=== PATIENT | female | born 1990 | race Caucasian/White ===

== ENCOUNTER 2023-02-08 11:41 | Outpatient (RCR) | payer BC, SELFPAY | END 2023-05-07 23:59 | disposition home or self-care (01) | LOC: ANHLAB 11:41 | PROVIDERS: Visit Provider Obstetrics & Gynecology Gynecology | DX: O26.851 Spotting complicating pregnancy, first trimester (principal); Z3A.00 Weeks of gestation of pregnancy not specified | CPT/HCPCS: 36415; 84702 ==

== ENCOUNTER 2023-02-14 15:17 | Outpatient (CLI) | payer BC, SELFPAY ==
--- NOTE | ~2023-02-14 | US_ITS ---
EXAMINATION: US OB <= 14 weeks fetus DATE: 02/14/2023 INDICATION: Bleeding during first trimester TECHNIQUE: Real-time pelvic transabdominal and transvaginal ultrasound was performed. COMPARISON: None. FINDINGS: The uterus measures 9.3 x 4.9 cm. There is an intrauterine gestational sac. There is a 9 mm hypoechoic area adjacent to the gestational sac. The measured cervical length is 3.4 cm. A yolk sac is identified. heart motion is identified measuring 145 beats per minute (bpm) by M-mode Dopple r. The crown rump length measures 11 mm, which correlates with an estimated gestational age of 7 weeks and 2 day(s) (+/-) 5 day(s). The right ovary is not visualized however no right adnexal abnormality is seen. The left ovary measur es 2.7 x 1.7 x 2.0. There is normal vascular flow in the left ovary. There is no free fluid in the pe lvis. IMPRESSION: 1. Live intrauterine with an estimated gestational age of 7 weeks and 2 day(s) (+/-) 5 day( s) and an estimated delivery date of 10/01/2023. 2. Small subchorionic hemorrhage. Reviewed, dictated and finalized at location A. IMPRESSION: 1. Live intrauterine with an estimated gestational age of 7 weeks and 2 day(s) (+/-) 5 day(s) and an estimated delivery date of 10/01/2023. 2. Small subchorionic hemorrhage.
== END 2023-02-14 15:18 | disposition home or self-care (01) ==
LOC: ANHIMG 18:16
PROVIDERS: Visit Provider Advanced Practice Midwife
DX: O26.851 Spotting complicating pregnancy, first trimester (principal); Z3A.00 Weeks of gestation of pregnancy not specified
CPT/HCPCS: 76801

== ENCOUNTER 2023-02-14 16:40 | Outpatient (CLI) | payer BC, SELFPAY | END 2023-02-14 16:41 | disposition home or self-care (01) | LOC: ANHLAB 16:42 | PROVIDERS: Visit Provider Obstetrics & Gynecology Gynecology | DX: O26.851 Spotting complicating pregnancy, first trimester (principal); Z3A.00 Weeks of gestation of pregnancy not specified | CPT/HCPCS: 36415; 76801; 86850; 86900; 86901 ==

== ENCOUNTER 2023-03-27 15:03 | Outpatient (CLI) | payer BC, SELFPAY ==
--- NOTE | ~2023-03-27 | US_ITS ---
EXAMINATION: US OB <= 14 weeks fetus DATE: 03/27/2023 15:45 INDICATION: Follow-up subchorionic hematoma TECHNIQUE: Real-time transabdominal and transvaginal obstetric ultrasound. FINDINGS: Ultrasound dated 02/14/2023 The uterus measures 17.3 x 8.7 x 5.6 cm. No evidence for subchorionic hematoma. There is an intrauter ine gestational sac, with pole identified. heart rate is 157 BPM. IMPRESSION: 1: Single living intrauterine with heart rate of 157 BPM. 2: Interval resolution of subchorionic hematoma. Reviewed, dictated and finalized at location A.
== END 2023-03-27 15:04 | disposition home or self-care (01) ==
PROVIDERS: Visit Provider Obstetrics & Gynecology Gynecology
DX: O36.8910 Maternal care for other specified fetal problems, first trimester, not applicable or unspecified (principal); Z3A.00 Weeks of gestation of pregnancy not specified
CPT/HCPCS: 76801

== ENCOUNTER 2023-04-17 07:36 | Outpatient (CLI) | payer BC, SELFPAY ==
[2023-04-17 08:12] LABS: Basophils Absolute Auto 0.1 K/mm3 (0.0-0.1); Basophils Percent Auto 0.6 % (0.2-1.2); Eosinophils Absolute Auto 0.2 K/mm3 (0-0.3); Eosinophils Percent Auto 2.1 % (0-4.4); Hematocrit 34.2 % (37.0-47.0); Hemoglobin 11.5 g/dL (12.0-15.0); Immature Granulocyte Absolute 0.05 K/mm3 (0.00-0.031); Immature Granulocyte Percent A 0.5 % (0-0.5); Lymphocytes Absolute Auto 1.87 K/mm3 (0.9-3.2); Lymphocytes Percent Auto 19.3 % (18.3-44.2); Mean Corpuscular HGB Conc 33.6 g/dl (32-36); Mean Corpuscular Hemoglobin 28.7 pg (26-34); Mean Corpuscular Volume 85.3 fl (80-100); Mean Platelet Volume 9.4 fl (7.4-10.4); Monocytes Absolute Auto 0.4 K/mm3 (0.1-0.6); Monocytes Percent Auto 4.2 % (2.6-8.5); Neutrophils Absolute Auto 7.1 K/mm3 (1.3-6.7); Neutrophils Percent Auto 73.3 % (45.5-73.1); Platelet Count Result 346 k/mm3 (150-375); Red Blood Count 4.01 M/mm3 (4.2-5.4); Red Cell Distribution Width 15.7 % (11.5-14.5); White Blood Count 9.7 K/mm3 (4.5-10.0)
[2023-04-17 08:18] LABS: Hemoglobin A1C 5.4 % (<5.7)
[2023-04-17 08:47] LABS: Vitamin D 25 Hydroxy 30.4 ng/mL
[2023-04-17 08:56] LABS: HIV 1/2 Ab P24 Ag Result Negative (Negative)
[2023-04-17 08:59] LABS: Hepatitis B Surface Antigen Negative (Negative); Rubella IgG Antibody 9.5 IU/ML
[2023-04-17 09:12] LABS: Hepatitis C Virus Antibody Negative (Negative)
[2023-04-17 12:13] LABS: Rapid Plasma Reagin Non-Reactive (NonReactive)
== END 2023-04-17 07:37 | disposition home or self-care (01) ==
PROVIDERS: Visit Provider Obstetrics & Gynecology Gynecology
DX: Z36.9 Encounter for antenatal screening, unspecified (principal); Z3A.00 Weeks of gestation of pregnancy not specified
CPT/HCPCS: 36415; 82306; 82728; 83036; 85025; 86592; 86703; 86762; 86803; 86850; 86900; 86901; 87340; G0432

== ENCOUNTER 2023-06-27 13:00 | Outpatient (CLI) | payer BC, SELFPAY ==
[2023-06-27 14:38] LABS: Hematocrit 32.9 % (37.0-47.0); Hemoglobin 10.7 g/dL (12.0-15.0)
[2023-06-27 14:47] LABS: Glucose 1 Hour PP 50gm Dose 146 mg/dL
[2023-06-27 15:27] LABS: Rubella IgG Antibody 8.1 IU/ML
[2023-06-27 15:28] LABS: HIV 1/2 Ab P24 Ag Result Negative (Negative)
== END 2023-06-27 13:01 | disposition home or self-care (01) ==
LOC: ANHLAB 13:01
PROVIDERS: Visit Provider Obstetrics & Gynecology Gynecology
DX: Z34.00 Encounter for supervision of normal first pregnancy, unspecified trimester (principal)
CPT/HCPCS: 36415; 82306; 82947; 85014; 85018; 86703; 86762; G0432

== ENCOUNTER 2023-07-20 07:04 | Outpatient (CLI) | payer BC, SELFPAY ==
[2023-07-20 07:51] LABS: Glucose Fasting Gestational 124 mg/dL (>/=95)
== END 2023-07-20 07:05 | disposition home or self-care (01) ==
LOC: ANHLAB 07:07
PROVIDERS: Visit Provider Obstetrics & Gynecology Gynecology
DX: Z34.03 Encounter for supervision of normal first pregnancy, third trimester (principal)
CPT/HCPCS: 36415; 82951; 82952

== ENCOUNTER 2023-08-17 12:51 | Observation (INO) | payer BC, SELFPAY ==
[2023-08-17] VITALS (16 sets, daily range): BP systolic 137–152; BP diastolic 85–97; PULSE 85–99; RESP 12–14; TEMP 36.6; O2SAT 99–100; BMI 37.8
--- NOTE | ~2023-08-17 | US_ITS ---
. EXAMINATION: US OB follow up w BPP DATE: 08/17/2023 12:09 INDICATION: Preeclampsia. Gestational diabetes. Third trimester. TECHNIQUE: Real-time pelvic ultrasound was performed. COMPARISON: Ultrasound 03/27/2023, 02/14/2023 FINDINGS: There is a single living fetus in vertex presentation. The placenta is posterior. heart rate i s 149 beats per minute (bpm). Amniotic fluid index is 25.6 cm, which is high (95th percentile is 24.9 cm) The following biometric data were obtained: Biparietal diameter (BPD): 8.5 cm; head circumference (HC): 32.4 cm; abdominal circumference (AC): 33 .9 cm; femur length (FL): 7.3 cm. These measurements are concordant. Estimated weight is 3117 g +/- 468 g, which correlates with the >97th percentile when 09/26/23 i s used as estimated date of delivery. As single measurements, these parameters are each equal to the following estimated gestational ages: BPD: 34 weeks 2 days. HC: 36 weeks 4 days. AC: 37 weeks 5 days. FL: 37 weeks 2 days. estimated gestational age based solely on measurements from this exam is 36 weeks 3 days +/- 2 weeks 4 days. Biophysical profile performed by the technologist: breathing (30 sec sustained breathing in 30 minutes): 2 out of 2 movement (3 gross body movements in 30 minutes): 2 out of 2 tone (one episode of gjzfnlo-aagplvmfc-xfrzhdm limb movement): 2 out of 2 Amniotic fluid pocket (2 cm): 2 out of 2 Total score: 8 out of 8 IMPRESSION: 1. Single living fetus in vertex presentation. 2. Large for gestational age. Estimated weight is 3117 g +/- 468 g, which correlates with the > 97th percentile when 09/26/23 is used as estimated date of delivery. Note that estimated date of deliv cherri based on the ultrasound from 02/14/2023 would be 10/01/23. 3. Polyhydramnios. 4. Biophysical profile 8 out of 8. Reviewed, dictated and finalized at location A. TECH IMPRESSION: 1. Single living fetus in vertex presentation. 2. Large for gestational age. Estimated weight is 3117 g +/- 468 g, which correlates with the >97th percentile when 09/26/23 is used as estimated date of delivery. Note that estimated date of delivery based on the ultrasound from would be 10/01/23. 3. Polyhydramnios. 4. Biophysical profile 8 out of 8.
[2023-08-17 10:52] LABS: Basophils Absolute Auto 0.1 K/mm3 (0.0-0.1); Basophils Percent Auto 0.5 % (0.2-1.2); Eosinophils Absolute Auto 0.1 K/mm3 (0-0.3); Hematocrit 33.8 % (37.0-47.0); Hemoglobin 10.9 g/dL (12.0-15.0); Immature Granulocyte Absolute 0.08 K/mm3 (0.00-0.031); Immature Granulocyte Percent A 0.7 % (0-0.5); Lymphocytes Absolute Auto 1.58 K/mm3 (0.9-3.2); Lymphocytes Percent Auto 13.8 % (18.3-44.2); Mean Corpuscular HGB Conc 32.2 g/dl (32-36); Mean Corpuscular Hemoglobin 26.7 pg (26-34); Mean Corpuscular Volume 82.8 fl (80-100); Mean Platelet Volume 10.6 fl (7.4-10.4); Monocytes Absolute Auto 0.6 K/mm3 (0.1-0.6); Monocytes Percent Auto 5.4 % (2.6-8.5); Neutrophils Percent Auto 78.6 % (45.5-73.1); Platelet Count Result 303 k/mm3 (150-375); Red Blood Count 4.08 M/mm3 (4.2-5.4); Red Cell Distribution Width 15.5 % (11.5-14.5); White Blood Count 11.5 K/mm3 (4.5-10.0)
[2023-08-17 10:57] LABS: Appearance Urine Clear (Clear); Bacteria Urine None Seen /hpf; Bilirubin Urine 1+ (Negative); Blood Urine Negative (Negative); Color Urine Dark Yellow (Yellow); Glucose Urine UA Negative (Negative); Ketones Urine 1+ mg/dL (Negative); Leukocyte Esterase Ur Trace LEU/UL (NEGATIVE); Nitrate Urine Negative (Negative); Non Pathogenic Casts 0-2; Protein Urine 1+ mg/dL (Negative); RBC Urine 0-2 /hpf (0-2); Specific Grav Ur 1.021 (1.001-1.035); Squamous Epithelial Cell Urine Moderate /hpf (Few); WBC Urine 0-5 /hpf (0-3); pH Urine 6.5 (5.0-9.0)
[2023-08-17 10:58] LABS: Total Protein Urine Random 40 mg/dL; Ur Ttl Prot Creatinine Ratio 0.23 mg/mg (0-0.20)
[2023-08-17 11:01] LABS: Add Urine Microscopic? YES
[2023-08-17 11:04] LABS: Alanine Aminotransferase 15 U/L (6-35); Albumin Level 3.2 g/dL (3.5-5.1); Alkaline Phosphatase 167 U/L (38-126); Anion Gap 8 mmol/L (8-16); Aspartate Amino Transferase 46 U/L (14-36); Bilirubin,Total 0.5 mg/dL (0.2-1.3); Blood Urea Nitrogen 3 mg/dL (7-17); Calcium 8.8 mg/dL (8.4-10.2); Carbon Dioxide 18 mmol/L (22-30); Chloride 109 mmol/L (98-107); Estimated Glomerular Filt Rate > 60; Glucose 117 mg/dL (65-110); Potassium 3.7 mmol/L (3.4-5.0); Sodium 135 mmol/L (137-145); Uric Acid 6.2 mg/dL (2.5-7.5)
--- NOTE | 2023-08-17 12:51 | PC.NURSE ---
Yeny La notified of BP's, non reactive tracing, variable and contractions noted, and lab results. Orders to keep patient overnight, cont monitoring until reactive.
--- NOTE | 2023-08-17 12:51 | OBADM ---
This patient, Mariam Gamboa, admitted to the OB room OB Post 116 for observation. Patient/family oriented to hospital policies and general routines including ID bracelet, bed and alarms, visiting hours, pain management, procedures, bathroom and other care routines, personal items, smoking policy, room service/diet, and visiting hours. Patient/Family are encouraged to report perceived risks to care and to ask questions if they do not understand what they are told or what they should do.
[2023-08-17 15:16] LABS: Glucose Point of Care 113 mg/dl (65-105)
[2023-08-17 19:22] LABS: Glucose Point of Care 96 mg/dl (65-105)
[2023-08-17] MEDS: INSULIN HUMAN NPH (*BKC) 100 UNITS/ML SUB-Q (21:25)
[2023-08-17 22:44] LABS: Glucose Point of Care 92 mg/dl (65-105)
[2023-08-18] VITALS (11 sets, daily range): BP systolic 131–157; BP diastolic 80–101; PULSE 73–104; RESP 14; TEMP 36.3–37.6; O2SAT 100
[2023-08-18 05:22] LABS: Basophils Absolute Auto 0.1 K/mm3 (0.0-0.1); Basophils Percent Auto 0.5 % (0.2-1.2); Eosinophils Absolute Auto 0.1 K/mm3 (0-0.3); Eosinophils Percent Auto 1.3 % (0-4.4); Hematocrit 36.1 % (37.0-47.0); Hemoglobin 11.5 g/dL (12.0-15.0); Immature Granulocyte Absolute 0.07 K/mm3 (0.00-0.031); Immature Granulocyte Percent A 0.6 % (0-0.5); Lymphocytes Absolute Auto 2.47 K/mm3 (0.9-3.2); Lymphocytes Percent Auto 22.6 % (18.3-44.2); Mean Corpuscular HGB Conc 31.9 g/dl (32-36); Mean Corpuscular Hemoglobin 26.5 pg (26-34); Mean Corpuscular Volume 83.2 fl (80-100); Mean Platelet Volume 10.6 fl (7.4-10.4); Monocytes Absolute Auto 0.5 K/mm3 (0.1-0.6); Monocytes Percent Auto 4.9 % (2.6-8.5); Neutrophils Absolute Auto 7.7 K/mm3 (1.3-6.7); Neutrophils Percent Auto 70.1 % (45.5-73.1); Platelet Count Result 296 k/mm3 (150-375); Red Blood Count 4.34 M/mm3 (4.2-5.4); Red Cell Distribution Width 15.2 % (11.5-14.5); White Blood Count 10.9 K/mm3 (4.5-10.0)
[2023-08-18 05:32] LABS: Alanine Aminotransferase 14 U/L (6-35); Albumin Level 3.2 g/dL (3.5-5.1); Alkaline Phosphatase 170 U/L (38-126); Anion Gap 9 mmol/L (8-16); Aspartate Amino Transferase 51 U/L (14-36); Bilirubin,Total 0.8 mg/dL (0.2-1.3); Blood Urea Nitrogen 4 mg/dL (7-17); Calcium 9.2 mg/dL (8.4-10.2); Carbon Dioxide 19 mmol/L (22-30); Chloride 108 mmol/L (98-107); Estimated CRCL calculation 185 ml/min; Estimated Glomerular Filt Rate > 60; Glucose 83 mg/dL (65-110); Potassium 3.8 mmol/L (3.4-5.0); Sodium 136 mmol/L (137-145); Uric Acid 6.4 mg/dL (2.5-7.5)
[2023-08-18 07:55] LABS: Glucose Point of Care 89 mg/dl (65-105)
--- NOTE | 2023-08-18 09:17 | PM.OBPNVD ---
OB - PN: Subj Subjective Date/time seen: 08/18/23 09:17 Interval history: She denies headache scotomata or RUQ pain. BP since observation 140s/90 mostly. AM BS 89. OB - PN: Obj Data Labs 08/18/23 05:06 08/18/23 05:06 Labs: Laboratory Results - last 24 hr 08/17/23 08/17/23 08/17/23 10:46 15:13 19:15 WBC 11.5 H RBC 4.08 L Hgb 10.9 L Hct 33.8 L MCV 82.8 MCH 26.7 MCHC 32.2 RDW 15.5 H Plt Count 303 MPV 10.6 H Immature Gran % (Auto) 0.7 H Neut % (Auto) 78.6 H Lymph % (Auto) 13.8 L [place] % (Auto) 5.4 Eos % (Auto) 1.0 Baso % (Auto) 0.5 Lymph # (Auto) 1.58 [place] # (Auto) 0.6 Eos # (Auto) 0.1 Baso # (Auto) 0.1 Abs Immat Gran (auto) 0.08 H Absolute Neuts (auto) 9.0 H Absolute Nucleated RBC 0.0 Nucleated RBC % 0.0 Sodium 135 L Potassium 3.7 Chloride 109 H Carbon Dioxide 18 L Anion Gap 8 BUN 3 L Creatinine 0.40 L Estim Creat Clear Calc Not Reportable Estimated GFR > 60 Glucose 117 H POC Capillary Glucose 113 H 96 Uric Acid 6.2 Calcium 8.8 Total Bilirubin 0.5 AST 46 H ALT 15 Alkaline Phosphatase 167 H Total Protein 7.0 Albumin 3.2 L Urine Color Dark yellow Urine Appearance Clear Urine pH 6.5 Ur Specific [place] 1.021 Urine Protein 1+ H Urine Glucose (UA) Negative Urine Ketones 1+ H Ur Blood (Man) Negative Urine Nitrate Negative Urine Bilirubin 1+ H Urine Urobilinogen 1.0 Ur Leukocyte Esterase Trace H Urine RBC 0-2 Urine WBC 0-5 Ur Squamous Epith Cells Moderate Urine Bacteria None seen Urine Casts 0-2 U Random Total Protein 40 Urine Creatinine 176.0 Protein/Creat Ratio 2 0.23 H 08/17/23 08/18/23 08/18/23 22:38 05:06 07:49 WBC 10.9 H RBC 4.34 Hgb 11.5 L Hct 36.1 L MCV 83.2 MCH 26.5 MCHC 31.9 L RDW 15.2 H Plt Count 296 MPV 10.6 H Immature Gran % (Auto) 0.6 H Neut % (Auto) 70.1 Lymph % (Auto) 22.6 [place] % (Auto) 4.9 Eos % (Auto) 1.3 Baso % (Auto) 0.5 Lymph # (Auto) 2.47 [place] # (Auto) 0.5 Eos # (Auto) 0.1 Baso # (Auto) 0.1 Abs Immat Gran (auto) 0.07 H Absolute Neuts (auto) 7.7 H Absolute Nucleated RBC 0.0 Nucleated RBC % 0.0 Sodium 136 L Potassium 3.8 Chloride 108 H Carbon Dioxide 19 L Anion Gap 9 BUN 4 L Creatinine 0.40 L Estim Creat Clear Calc 185 Estimated GFR > 60 Glucose 83 POC Capillary Glucose 92 89 Uric Acid 6.4 Calcium 9.2 Total Bilirubin 0.8 AST 51 H ALT 14 Alkaline Phosphatase 170 H Total Protein 7.0 Albumin 3.2 L Urine Color Urine Appearance Urine pH Ur Specific [place] Urine Protein Urine Glucose (UA) Urine Ketones Ur Blood (Man) Urine Nitrate Urine Bilirubin Urine Urobilinogen Ur Leukocyte Esterase Urine RBC Urine WBC Ur Squamous Epith Cells Urine Bacteria Urine Casts U Random Total Protein Urine Creatinine Protein/Creat Ratio 2 Imaging Radiologist's impression: Impressions Obstetrical Follow-Up 08/17/23 12:12 IMPRESSION: 1. Single living fetus in vertex presentation. 2. Large for gestational age. Estimated weight is 3117 g +/- 468 g, which correlates with the >97th percentile when 09/26/23 is used as estimated date of delivery. Note that estimated date of delivery based on the ultrasound from 02/14/2023 would be 10/01/23. 3. Polyhydramnios. 4. Biophysical profile 8 out of 8. OB - PN A/P Assessment and Plan (1) Gestational hypertension: Code(s): O13.9 - Gestational [-induced] hypertension without significant proteinuria, unspecified trimester Status: Acute Assessment and Plan: No severe symptoms or labs. Will complete 24 hour urine and then discharge with PIH precautions. (2) Gestational diabetes:
[2023-08-18 10:53] LABS: Glucose Point of Care 107 mg/dl (65-105)
[2023-08-18] MEDS: LABETALOL HCL 100 MG TABLET 200 MG PO (12:30)
[2023-08-18 13:08] LABS: Collection Time Urine 24 HOURS
[2023-08-18 13:10] LABS: Total Volume 24 Hour Urine 1800 ml
[2023-08-18 13:25] LABS: Creatinine Clearance Urine 198.5 ml/min (75-125); Creatinine Urine 72.7 mg/dL; Patient Weight 213 Lbs; Total Protein Urine 24 Hr 414 mg/24hr (28-141); Total Protein Urine Random 23 mg/dL
== END 2023-08-18 13:40 | disposition home or self-care (01) ==
LOC: ANHOBOP 13:08 → ANHOBPP 08-18 13:29
PROVIDERS: Advanced Practice Midwife; Admitting Provider Obstetrics & Gynecology Gynecology; Visit Provider Obstetrics & Gynecology
DX: O13.3 Gestational [pregnancy-induced] hypertension without significant proteinuria, third trimester (principal); O24.419 Gestational diabetes mellitus in pregnancy, unspecified control; O40.3XX0 Polyhydramnios, third trimester, not applicable or unspecified; Z3A.34 34 weeks gestation of pregnancy
CPT/HCPCS: 36415; 59025; 76816; 76819; 80053; 81001; 81050; 82570; 82575; 82948; 84156; 84550; 85025; 87086; 87088; A9270; G0378; G0379; J1815

== ENCOUNTER 2023-08-30 11:08 | Outpatient (RCR) | payer BC, SELFPAY ==
--- NOTE | ~2023-08-30 | US_ITS ---
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 FINDINGS: 08/17/2023 There is a single living fetus in vertex presentation. The placenta is posterior without placenta pr evia. cardiac activity and movement is noted with a heart rate of 141 beats per minute. Biophysical profile: breathin of 2 movement: 2 of 2 tone: 2 of 2 Amniotic flud pocket: 2 of 2 Total score: 8 of 8 IMPRESSION: 1. Single living intrauterine in vertex presentation. 2: Total biophysical profile score of 8/8. Reviewed, dictated and finalized at location L. ULSION MACHINERY SERVICE ENGINEER
[2023-08-30 12:46] VITALS: BP 124/75; PULSE 73
== END 2023-11-28 23:59 | disposition home or self-care (01) ==
LOC: ANHOBOP 11:08
PROVIDERS: Visit Provider Advanced Practice Midwife
DX: O26.893 Other specified pregnancy related conditions, third trimester (principal); Z3A.36 36 weeks gestation of pregnancy
CPT/HCPCS: 59025; 76819

== ENCOUNTER 2023-09-05 00:01 | Inpatient (IN) | payer BC, SELFPAY ==
[2023-09-05] VITALS (130 sets, daily range): BP systolic 113–160; BP diastolic 65–105; PULSE 67–108; RESP 16; TEMP 35.8–36.8; O2SAT 96–100; BMI 37.0
[2023-09-05 00:32] LABS: Glucose Point of Care 112 mg/dl (65-105)
[2023-09-05 00:36] LABS: Basophils Absolute Auto 0.1 K/mm3 (0.0-0.1); Basophils Percent Auto 0.7 % (0.2-1.2); Eosinophils Absolute Auto 0.1 K/mm3 (0-0.3); Eosinophils Percent Auto 0.8 % (0-4.4); Hematocrit 38.1 % (37.0-47.0); Immature Granulocyte Absolute 0.05 K/mm3 (0.00-0.031); Immature Granulocyte Percent A 0.5 % (0-0.5); Lymphocytes Absolute Auto 2.45 K/mm3 (0.9-3.2); Lymphocytes Percent Auto 23.4 % (18.3-44.2); Mean Corpuscular HGB Conc 31.5 g/dl (32-36); Mean Corpuscular Hemoglobin 26.4 pg (26-34); Mean Corpuscular Volume 83.7 fl (80-100); Mean Platelet Volume 11.3 fl (7.4-10.4); Monocytes Absolute Auto 0.6 K/mm3 (0.1-0.6); Monocytes Percent Auto 5.4 % (2.6-8.5); Neutrophils Absolute Auto 7.2 K/mm3 (1.3-6.7); Neutrophils Percent Auto 69.2 % (45.5-73.1); Platelet Count Result 369 k/mm3 (150-375); Red Blood Count 4.55 M/mm3 (4.2-5.4); Red Cell Distribution Width 16.5 % (11.5-14.5); White Blood Count 10.5 K/mm3 (4.5-10.0)
[2023-09-05] MEDS: DINOPROSTONE 10 MG VAG INSERT VAGINAL (01:34)
[2023-09-05] MEDS: LACTATED RINGERS 1,000 ML 125 ML IV CONT ×3 (01:34→23:50)
[2023-09-05 01:37] LABS: Alanine Aminotransferase 16 U/L (6-35); Alkaline Phosphatase 224 U/L (38-126); Anion Gap 11 mmol/L (8-16); Aspartate Amino Transferase 45 U/L (14-36); Bilirubin,Total 0.4 mg/dL (0.2-1.3); Blood Urea Nitrogen 9 mg/dL (7-17); Carbon Dioxide 14 mmol/L (22-30); Chloride 110 mmol/L (98-107); Estimated CRCL calculation 128 ml/min; Estimated Glomerular Filt Rate > 60; Glucose 106 mg/dL (65-110); Potassium 3.8 mmol/L (3.4-5.0); Sodium 135 mmol/L (137-145)
--- NOTE | 2023-09-05 03:25 | WPDANESEPP ---
Anes - Eval Pre Procedure Procedure: Labor epidural Date/Time: 09/05/23 03:25 Surgeon: Gladis Preop Diagnosis: Abdominal pain with contractions Pre Op Diagnosis: IOL Patient Data Age: 32 Gender: F Height: 1.6 m Weight: 95 kg Last Vital Signs Temp 97.6 F 09/05/23 01:00 Pulse 84 09/05/23 01:15 BP 148/95 H 09/05/23 01:15 Allergies Allergy/AdvReac Type Severity Reaction Status Date / Time No Known Allergies Allergy Verified 08/17/23 18:22 Home Medications Medication Instructions Recorded Confirmed Type aspirin 81 mg capsule 81 mg PO DAILY 08/17/23 08/30/23 History ergocalciferol (vitamin D2) 1,250 1,250 mcg PO WEEKLY 08/17/23 08/30/23 History mcg (50,000 unit) capsule escitalopram oxalate 20 mg tablet 20 mg PO DAILY 08/17/23 08/30/23 History famotidine 20 mg tablet (Pepcid) 20 mg PO DAILY 08/17/23 08/30/23 History ferrous sulfate 47.5 mg PO BID 08/17/23 08/30/23 History labetalol 100 mg tablet 200 mg PO BID #120 tabs 08/18/23 08/30/23 Rx Humulin N NPH U-100 Insulin 4 units subcut HS gestational 08/30/23 08/30/23 History diabetes Laboratory Tests 09/05/23 09/05/23 00:15 00:26 WBC 10.5 H K/mm3 (4.5-10.0) RBC 4.55 M/mm3 (4.2-5.4) Hgb 12.0 g/dL (12.0-15.0) Hct 38.1 % (37.0-47.0) MCV 83.7 fl (80-100) MCH 26.4 pg (26-34) MCHC 31.5 L g/dl (32-36) RDW 16.5 H % (11.5-14.5) Plt Count 369 k/mm3 (150-375) MPV 11.3 H fl (7.4-10.4) Immature Gran % (Auto) 0.5 % (0-0.5) Neut % (Auto) 69.2 % (45.5-73.1) Lymph % (Auto) 23.4 % (18.3-44.2) [place] % (Auto) 5.4 % (2.6-8.5) Eos % (Auto) 0.8 % (0-4.4) Baso % (Auto) 0.7 % (0.2-1.2) Lymph # (Auto) 2.45 K/mm3 (0.9-3.2) [place] # (Auto) 0.6 K/mm3 (0.1-0.6) Eos # (Auto) 0.1 K/mm3 (0-0.3) Baso # (Auto) 0.1 K/mm3 (0.0-0.1) Abs Immat Gran (auto) 0.05 H K/mm3 (0.00-0.031) Absolute Neuts (auto) 7.2 H K/mm3 (1.3-6.7) Absolute Nucleated RBC 0.0 K/mm3 (0.0-0.012) Nucleated RBC % 0.0 % (0.0-0.2) Sodium 135 L mmol/L (137-145) Potassium 3.8 mmol/L (3.4-5.0) Chloride 110 H mmol/L (98-107) Carbon Dioxide 14 L mmol/L (22-30) Anion Gap 11 mmol/L (8-16) BUN 9 D mg/dL (7-17) Creatinine 0.60 L mg/dL (0.7-1.0) Estim Creat Clear Calc 128 ml/min Estimated GFR > 60 (59 - ) Glucose 106 mg/dL (65-110) POC Capillary Glucose 112 H mg/dl (65-105) Calcium 9.0 mg/dL (8.4-10.2) Total Bilirubin 0.4 mg/dL (0.2-1.3) AST 45 H U/L (14-36) ALT 16 U/L (6-35) Alkaline Phosphatase 224 H U/L (38-126) Total Protein 7.0 g/dL (6.3-8.2) Albumin 3.0 L g/dL (3.5-5.1) RPR Pending Blood Type O Positive Antibody Screen Negative : gestational age HCG: positive Patient hx anesthesia problems: none Family hx anesthesia problems: none Results Review: All pre-operative results and documents have been reviewed as part of the pre-operative evaluation. PMFSH Past Medical History Medical History Anxiety and depression Gestational diabetes History of smoking for 1-2 years Morbid obesity Obesity and not yet delivered Suicide attempt Family History Family History (Updated 08/30/23 @ 11:36 by Mendel Garcia RN) Sibling Franco disease Father Diabetes mellitus Mother Hypertension Father Hypertension Mother Breast cancer Social History Social History Years smoked: 2 Smoking status: Former smoker Tobacco type: cigarettes Second hand tobacco smoke exposure: No Smoking end date: 09/20/18 Substance use: never Do You Feel Safe in your Home?: No Lack of Transp
[2023-09-05 05:16] LABS: Glucose Point of Care 106 mg/dl (65-105)
[2023-09-05 09:40] LABS: Glucose Point of Care 129 mg/dl (65-105)
[2023-09-05 12:20] LABS: Rapid Plasma Reagin Non-Reactive (NonReactive)
[2023-09-05] MEDS: LABETALOL HCL 100 MG TABLET 200 MG PO ×2 (13:03→21:39)
[2023-09-05 14:37] LABS: Glucose Point of Care 128 mg/dl (65-105)
[2023-09-05] MEDS: OXYTOCIN 30 UNITS/NS 500 ML 30 UNITS/500 ML BAG IV CONT (15:28)
--- NOTE | 2023-09-05 17:27 | WPDOBADMIT ---
Obstetrics - Admit Note Admission Note: record reviewed. No pertinent additions to the history and/or any subsequent changes in the physical findings that are not consistent with the expected course of the were found. Additions to the history and/or subsequent changes in the physical findings follow. None.
--- NOTE | 2023-09-05 17:32 | PM.OBPNLAB ---
Pain Control Date/time seen: 09/05/23 17:32 Pain control: tolerating well Comments: CNM at bedside at 0750 this am. Cervidil placed overnight for IOL due to possible variable deceleration. Mariam is feeling cramping in her abdomen occasionally similar to menstrual cramps . VSS. Blood sugars WNL. Discussed IOL process and cervical ripening. Partner present at bedside and is supportive. Pelvic Exam Comments: SVE deferred at this time. Contractions Monitor mode: External Contraction frequency: 4 Contraction pattern: Regular Contraction intensity: Mild Status status: Category l Assessment and Plan Assessment: induction ongoing
--- NOTE | 2023-09-05 17:33 | PM.OBPNLAB ---
Pain Control Date/time seen: 09/05/23 17:20 Pain control: tolerating well Comments: Epidural requested d/t increasing contractin intensity. Pelvic Exam Dilation (cm): 1 Effacement (%): 25 station: -3 Amniotic membrane status: Intact Comments: Ballotable Contractions Monitor mode: External Contraction pattern: Regular Contraction intensity: Moderate Status status: Category ll Comments: Moderate variabliity, Assessment and Plan Assessment: induction ongoing Comments: Discussed options for IOL with pt and her partner. Discussed risks and benefits of cook catheter for cervical ripening. Pt agreeable. Plan to wait until after epidural placement for comfort.
[2023-09-05 18:16] LABS: Glucose Point of Care 102 mg/dl (65-105)
--- NOTE | 2023-09-05 18:16 | PM.OBPNLAB ---
Pain Control Date/time seen: 09/05/23 18:16 Pain control: tolerating well and epidural Pelvic Exam Dilation (cm): 1 (1.5) Effacement (%): 50 station: -3 Amniotic membrane status: Intact Comments: cervix soft Contractions Monitor mode: External Contraction frequency: 3 Contraction pattern: Regular Contraction intensity: Moderate Status status: Category ll Comments: Reassured by moderate variability and accelerations. Assessment and Plan Pitocin rate (mU/min): 6 Assessment: induction ongoing Plan: continuous present management Comments: Cook catheter placed sterilly via vagina. Uterine balloon and vaginal balloon inflated with 80ml sterile saline. Pt tolerated procedure very well with no complaints. Discussed plan of care for IOL. All questions answered. Dr. Griffith updated. Anticipate vaginal .
[2023-09-05 21:50] LABS: Glucose Point of Care 81 mg/dl (65-105)
[2023-09-06] VITALS (288 sets, daily range): BP systolic 107–170; BP diastolic 42–113; PULSE 71–154; RESP 16–25; TEMP 35.9–37.5; O2SAT 90–100
[2023-09-06 02:18] LABS: Glucose Point of Care 78 mg/dl (65-105)
[2023-09-06 06:24] LABS: Glucose Point of Care 76 mg/dl (65-105)
[2023-09-06] MEDS: LACTATED RINGERS 1,000 ML 125 ML IV CONT ×3 (07:25→19:25)
--- NOTE | 2023-09-06 08:21 | PM.OBPNLAB ---
Pain Control Date/time seen: 09/06/23 0750 Pain control: tolerating well and epidural Pelvic Exam Dilation (cm): 4 (1.5) Effacement (%): 70 station: -3 Amniotic membrane status: Bulging Comments: head applied to cervix Contractions Monitor mode: External Contraction frequency: 3 Contraction pattern: Regular Contraction intensity: Moderate Status status: Category ll Comments: Reasurred by periods of moderate variability and accels Assessment and Plan Pitocin rate (mU/min): 16 Assessment: induction ongoing Comments: CNM to bedside. Discussed plan of care an option for amniotomy and IUPC placement. Discussed risks, benefits, and expectations of breaking water. Patient is agreeable. Amniotomy performed and there was a copious return of clear amniotic fluid. IUPC placed easily and returned with clear amniotic fluid. Patient tolerated procedure well. Pitocin rate decreased to 8ml/hr following amniotomy. Dr. Griffith updated.
[2023-09-06 08:36] LABS: Glucose Point of Care 83 mg/dl (65-105)
[2023-09-06] MEDS: SODIUM CHLORIDE 0.9% IV 600 ML 999 ML I-UTERINE (09:34)
[2023-09-06 11:17] LABS: Glucose Point of Care 76 mg/dl (65-105)
[2023-09-06 13:45] LABS: Glucose Point of Care 84 mg/dl (65-105)
[2023-09-06] MEDS: LABETALOL HCL 100 MG TABLET 200 MG PO (14:51)
[2023-09-06 16:52] LABS: Glucose Point of Care 87 mg/dl (65-105)
--- NOTE | 2023-09-06 17:32 | PM.OBPNLAB ---
Pain Control Date/time seen: 09/06/23 17:20 Status status: Category ll Assessment and Plan Comments: Dr. Griffith present. Plan to deliver via delivery.
--- NOTE | 2023-09-06 17:33 | PM.IMHP ---
H&P: HPI History of Present Illness Date/Time: 09/06/23 17:15 Chief Complaint: Term IOL. Failure to progress Narrative: 1. 32 y.o. at 37 weeks 1 day. 2. Failure to Progress 3. Preeclampsia 4. GDMA2 5. LGA 6. Polyhydramnios 7. Anxiety and Depression Review of Systems Review of Systems: All systems reviewed & are unremarkable except as noted in HPI and below PMFSH Past Medical History Medical History (Updated 09/06/23 @ 17:37 by Yday La CNM) Anxiety and depression Gestational diabetes History of smoking for 1-2 years Morbid obesity Obesity and not yet delivered Suicide attempt Family History Family History (Updated 08/30/23 @ 11:36 by Mendel Garcia RN) Sibling Franco disease Father Diabetes mellitus Mother Hypertension Father Hypertension Mother Breast cancer Social History Social History Years smoked: 2 Smoking status: Former smoker Tobacco type: cigarettes Second hand tobacco smoke exposure: No Smoking end date: 09/20/18 Substance use: never Do You Feel Safe in your Home?: No Lack of Transportation: No Lack of Food: Never True Current Housing: I Have Housing Concerned About Future Housing: No Difficulty Paying Gas/Electric Bills: No Difficulty Paying for Meds: No Currently Unemployed: No Education: Bachelor's Degree Difficulty w/ Childcare or Family Care: No Spiritual care concerns: No Meds Home Medications and Allergies Home Medications Medication Instructions Recorded Confirmed Type aspirin 81 mg capsule 81 mg PO DAILY 08/17/23 08/30/23 History ergocalciferol (vitamin D2) 1,250 1,250 mcg PO WEEKLY 08/17/23 08/30/23 History mcg (50,000 unit) capsule escitalopram oxalate 20 mg tablet 20 mg PO DAILY 08/17/23 08/30/23 History famotidine 20 mg tablet (Pepcid) 20 mg PO DAILY 08/17/23 08/30/23 History ferrous sulfate 47.5 mg PO BID 08/17/23 08/30/23 History labetalol 100 mg tablet 200 mg PO BID #120 tabs 08/18/23 08/30/23 Rx Humulin N NPH U-100 Insulin 4 units subcut HS gestational 08/30/23 08/30/23 History diabetes Allergies Allergy/AdvReac Type Severity Reaction Status Date / Time No Known Allergies Allergy Verified 08/17/23 18:22 Vital Signs Vital Signs - 24 hr 09/05/23 17:35 09/05/23 17:36 09/05/23 17:37 Temperature Pulse Rate 74 70 Respiratory Rate Blood Pressure 127/80 143/79 H Pulse Oximetry 100 09/05/23 17:39 09/05/23 17:42 09/05/23 17:45 Temperature Pulse Rate 77 80 75 Respiratory Rate Blood Pressure 139/75 132/75 146/86 H Pulse Oximetry 100 09/05/23 17:47 09/05/23 17:48 09/05/23 17:51 Temperature Pulse Rate 75 80 Respiratory Rate Blood Pressure 137/78 136/81 Pulse Oximetry 100 09/05/23 17:52 09/05/23 17:54 09/05/23 17:57 Temperature Pulse Rate 75 74 Respiratory Rate Blood Pressure 139/78 134/76 Pulse Oximetry 100 100 09/05/23 18:01 09/05/23 18:02 09/05/23 18:06 Temperature Pulse Rate 88 83 Respiratory Rate Blood Pressure 129/65 113/89 Pulse Oximetry 100 09/05/23 18:07 09/05/23 18:12 09/05/23 18:17 Temperature Pulse Rate 89 Respiratory Rate Blood Pressure 132/102 H Pulse Oximetry 100 100 100 09/05/23 18:11 09/05/23 18:22 09/05/23 18:27 Temperature 97.3 F L Pulse Rate Respiratory Rate Blood Pressure Pulse Oximetry 100 100 09/05/23 18:30 09/05/23 18:32 09/05/23 18:37 Temperature Pulse Rate 81 Respiratory Rate Blood Pressure 149/87 H Pulse Oximetry 100 100 09/05/23 18:42 09/05/23 18:45 09/05/23 18:47 Temperature Pulse Rate 83 Respiratory Rate Blood Pressure 143/85 H Pulse Oximetry 100 100 09/05/23 18:52 09/05/23 18:57 09/05/23 19:00 Temperature Pulse Rate 86 Respiratory Rate Blood Pressure 148/82 H Pulse Oximetry 100 100 09/05/23 19:02 09/05/23 19:07 09/05
--- NOTE | 2023-09-06 17:39 | PM.OBPNLAB ---
Pain Control Date/time seen: 09/06/23 2171 Pain control: tolerating well and epidural Comments: CNM at bedside. Pt on hands and knees, shaking hips with ctx. Pelvic Exam Comments: no SVE at this time. SVE per RN was complete and -2 to -1 station. Contractions Monitor mode: Internal Contraction frequency: 5 (5-6) Contraction duration: 90 Contraction pattern: Regular Contraction intensity: Moderate Status status: Category ll Comments: 140-145
--- NOTE | 2023-09-06 17:46 | PM.OBPNLAB ---
Pain Control Date/time seen: 09/06/23 17:25 Pain control: tolerating well and epidural Pelvic Exam Dilation (cm): 10 Effacement (%): 100 station: -2 Contractions Monitor mode: Internal Status status: Category ll Assessment and Plan Comments: CNM at bedside with repositioning. Varibale decelerations with each contraction. No descent noted. With one expulsive effort, there was no descent. Dr. Griffith called to come to bedside.
--- NOTE | 2023-09-06 17:51 | WPDANESEPPF ---
Anes - Initial Pre Proc Eval Procedure: Operation Date: 09/06/23 18:00 Proposed Procedures p Section - Dinah Griffith MD Date/Time: 09/06/23 17:51 Surgeon: Yady La CNM Pre Op Diagnosis: IOL Patient Data Age: 32 Gender: F Height: 1.6 m Weight: 95 kg Last Vital Signs Temp 37.1 C 09/06/23 17:10 Pulse 104 H 09/06/23 16:31 Resp 16 09/06/23 08:23 BP 149/79 H 09/06/23 16:31 Pulse Ox 100 09/06/23 16:18 Allergies Allergy/AdvReac Type Severity Reaction Status Date / Time No Known Allergies Allergy Verified 08/17/23 18:22 Home Medications Medication Instructions Recorded Confirmed Type aspirin 81 mg capsule 81 mg PO DAILY 08/17/23 08/30/23 History ergocalciferol (vitamin D2) 1,250 1,250 mcg PO WEEKLY 08/17/23 08/30/23 History mcg (50,000 unit) capsule escitalopram oxalate 20 mg tablet 20 mg PO DAILY 08/17/23 08/30/23 History famotidine 20 mg tablet (Pepcid) 20 mg PO DAILY 08/17/23 08/30/23 History ferrous sulfate 47.5 mg PO BID 08/17/23 08/30/23 History labetalol 100 mg tablet 200 mg PO BID #120 tabs 08/18/23 08/30/23 Rx Humulin N NPH U-100 Insulin 4 units subcut HS gestational 08/30/23 08/30/23 History diabetes Laboratory Tests 09/05/23 09/05/23 09/06/23 18:11 21:37 02:12 POC Capillary Glucose 102 mg/dl 81 mg/dl 78 mg/dl (65-105) (65-105) (65-105) 09/06/23 09/06/23 09/06/23 05:56 08:33 11:15 POC Capillary Glucose 76 mg/dl 83 mg/dl 76 mg/dl (65-105) (65-105) (65-105) 09/06/23 09/06/23 13:39 16:48 POC Capillary Glucose 84 mg/dl 87 mg/dl (65-105) (65-105) : gestational age HCG: positive Patient hx anesthesia problems: none Family hx anesthesia problems: none Results Review: All pre-operative results and documents have been reviewed as part of the pre-operative evaluation. [facility], [facility] Past Medical History Medical History (Updated 09/06/23 @ 17:37 by Yady La CNM) Anxiety and depression Gestational diabetes History of smoking for 1-2 years Morbid obesity Obesity and not yet delivered Suicide attempt Family History Family History (Updated 08/30/23 @ 11:36 by Mendel Garcia RN) Sibling Frnaco disease Father Diabetes mellitus Mother Hypertension Father Hypertension Mother Breast cancer Social History Social History Years smoked: 2 Smoking status: Former smoker Tobacco type: cigarettes Second hand tobacco smoke exposure: No Smoking end date: 09/20/18 Substance use: never Do You Feel Safe in your Home?: No Lack of Transportation: No Lack of Food: Never True Current Housing: I Have Housing Concerned About Future Housing: No Difficulty Paying Gas/Electric Bills: No Difficulty Paying for Meds: No Currently Unemployed: No Education: Bachelor's Degree Difficulty w/ Childcare or Family Care: No Spiritual care concerns: No Anes - Eval Final PreProcedure Day of Procedure 09/06/23 17:51 Patient weight: obese Heart: regular rate and rhythm Lungs: clear to auscultation and normal air movement Airway: Mallampati scale class II Neurological: alert and oriented Last oral intake: >/= 8 hours ASA classification: III Emergent: yes Anesthetic plan: proceed Anesthesia type and monitoring: regional spinal and standard monitoring Results Review: All pre-operative results and documents have been reviewed as part of the pre-operative evaluation. Informed Consent: The patient's anesthetic plan and its attendant risks and benefits were discussed with the patient/family/POA. Questions were solicited and answers provided to the satisfaction of the patient/family/POA.
--- NOTE | 2023-09-06 18:32 | W.PM.OBCSD ---
OB - Delivery Note Procedure Delivery date: 09/06/23 Pre-op diagnosis: Arrest of Decent, Decelerations, Gestational Diabetes (GDMA2), Polyhydramnios, Preeclampsia w/o severe features and Other (OP position) Post-op Diagnosis: Same Induction method: AROM, Per Pitocin Protocol and Per Cervidil Protocol Delivery monitor: External FHT and Internal Uterine Procedure Performed: Primary Primary branch: low cervical, transverse Surgeon: Dinah Griffith MD Anesthesia type: Epidural Description of Procedure/Findings: The patient is to the operating room and placed under spinal anesthesia in the dorsal supine position with a leftward tilt. She was prepped and draped in usual sterile fashion. There is a large mole in the right lower quadrant that is at the level of the incision. Patient was asked if she wanted it removed and stated yes. A Pfannenstiel skin incision was made with a scalpel and carried down to the underlying layer of fascia the mole was excised in an elliptical fashion at the edge of the incision. The fascial incision is extended laterally using Ann scissors. Ochsner was used to tent the fascia which was then dissected off using sharp and blunt dissection. The rectus muscles are in the midline and the peritoneum tented and entered with Metzenbaum scissors. The incision was extended with blunt traction. The bladder blade is placed and the vesicouterine peritoneum tented and entered with Metzenbaum scissors. The incision was extended laterally and the bladder flap created digitally. The bladder blade is replaced. The lower uterine segment was incised in a transverse fashion with the scalpel and extended laterally using blunt traction. Clear fluid is noted. The cord delivered through the incision at this time. The head is brought up into the incision and was noted to be in the left occiput posterior position. The head is delivered while guiding the vertex. The remainder of the was fully delivered while the phlebotomist medical lab assistant applied fundal pressure. The cord clamp was delayed for [id number]. The infant initially cried but then quit crying therefore doubly clamped the cord and cut and the was handed off to the and Nursery team. The placenta is removed using manual traction. The cord is noted to be long and the insertion site is velamentous. The uterus is quite enlarged and left in Situ. The Perry O retractor is placed. The posterior uterine incision was grasped with ring forceps. The uterine incision was closed using 0 Monocryl in a running locked fashion with the same suture used to imbricate. One additional [id number] suture was required at the right angle. Good hemostasis was then noted. The irrigation is used in the gutters and cul-de-sac. The incision was again inspected noted to be hemostatic. The tubes and ovaries appear grossly normal. The Perry O retractor was removed. The fascial incision was closed using 0 Vicryl in a running fashion. The subcutaneous tissues are irrigated and made hemostatic using Bovie cautery. The skin is closed using 4-0 Vicryl in a subcuticular fashion. Dermaflex was placed over the incision. Sponge, needle, and instrument counts are correct per the OR staff. The patient was given Ancef prior to incision and Zithromax was infusing IV. Specimen: Yes ( Placenta) Estimated Blood Loss: 480 Drains: Yes ( Salcedo catheter) Packing: No Pathology: Yes ( placenta) Complications: No immediate complications Condition: Stable Disposition: [place] Baby Date of : 09/06/23 Weeks of gestation at delivery: 37 Infant gender: Female Weight (pounds): 7 Weight (ounces): 7 presentation: vertex position: Left Occiput Posterior Placenta delivery description: Spontaneous and Abnormal Configuration ( velamentous insertion) Cord Vessel Description: 3 Vessels and Delayed Cord Clamping ( 30seconds) score o
--- NOTE | 2023-09-06 18:46 | PM.OBDSVD ---
DS: Admitting Diagnosis Discharge Date 09/08/22 Admitting Diagnosis intrauterine at 37 weeks preeclampsia gestational diabetes insulin requiring polyhydramnios DS: Discharge Diagnosis Discharge Diagnosis (1) Delivery of first by section using transverse incision of lower segment of uterus: Code(s): O82 - Encounter for delivery without indication Status: Acute (2) Preeclampsia: Code(s): O14.90 - Unspecified pre-eclampsia, unspecified trimester Status: Acute (3) Failure to progress in labor: Code(s): O62.2 - Other uterine inertia Status: Acute (4) GDM, class A2: Code(s): O24.419 - Gestational diabetes mellitus in , unspecified control Status: Acute (5) Polyhydramnios: Code(s): O40.9XX0 - Polyhydramnios, unspecified trimester, not applicable or unspecified Status: Acute OB - DS: Summary OB Procedures : NST, PIH Mgmt and Ultrasound OB Procedures Intrapartum: low cervical, transverse OB Procedures: : None Peripartum Data Infant Delivery Method: Section Procedures: Procedures Operation Date: 09/06/23 18:00 Actual Procedure Side Surgeon p Section Dinah Griffith MD complications: none Status at Discharge Functional status at discharge: independent ambulation Overall status at discharge: patient is progressing back to baseline Time Spent with Patient Time attestation: Total time spent providing and/or coordinating discharge services: DS: Data Data Completed and Pending Pending studies at discharge: Pending at discharge 09/06/23 18:00 Surgical [PTH] Routine Labs on day of discharge: Labs from last 24 hours 09/06/23 09/06/23 09/06/23 16:48 13:39 11:15 POC Capillary Glucose 87 84 76 09/06/23 09/06/23 09/06/23 08:33 05:56 02:12 POC Capillary Glucose 83 76 78 09/05/23 21:37 POC Capillary Glucose 81 Discharge Plan Discharge Attending physician on discharge: Dinah Griffith Discharging Clinician: Dinah Griffith Anticipated Discharge Date/Time: 09/09/23 18:47 Patient Disposition: Home, Self-Care Activity: may shower, may drive after 2 weeks and pelvic rest Diet: regular Wound Care Instructions: incision open to air Discharge Instructions: Education: Mom and Baby Guide Given to: Mother Follow-Up: Call your delivering provider's office for an appointment to be seen in: 1 week for blood pressure and incision check, per Dr. Griffith no need for follow up at [facility], have patient monitor her blood pressure at home as she did while . Per Dr. Griffith, have the nurse @ [facility] check her blood pressure a few times today as well. Patient is to continue her Labetalol 100mg by mouth every 12 hours at home until she is seen for her 1 week appointment. The next dose is due today at 9:00PM. BREAST CARE: * Wear a snug supportive bra. * For engorgement discomfort: Breast Feeding/Pumping: * Apply warm moist washcloths * Express milk as needed to relieve engorgement * Wear loose clothing * For sore nipples: * Identify correct latch-on/Flange size for breast pump * Apply warm moist washcloths before and after nursing * Air dry nipples after nursing * May apply Lansinoh cream to nipples ABDOMINAL INCISION: * Allow incision to air dry * Do NOT use lotions for powders on your incision * When showering, allow soap and water to run over the incision, but do not wash incision PERINEAL CARE: * Until bleeding stops, use your pablo bottle after urinating * Change your pad frequently throughout the day * No tub baths until seen by your physician - You may shower ACTIVITY: * Rest as much as possible. * Do not exercise or lift anything heavier than your baby (such as laundry or other
--- NOTE | 2023-09-06 20:41 | SUR.PHASEI ---
2012- report given to Meredith Watson RN. Pt still in OB recovery room at this time pt waiting to see baby in nursery prior to maternal transfer to .
--- NOTE | 2023-09-06 21:15 | OBPPTRN ---
Patient transferred to post room #292 via stretcher. Support person present. Oriented to unit, room, information board, rooming in, admission packet and security measures. Patient verbalizes understanding. Infant in level II nursery.
[2023-09-06] MEDS: DEXTROSE 5%/0.45% SOD CHL 1,000 ML 125 ML IV CONT (23:53)
[2023-09-07 04:35] VITALS: BP 136/79; PULSE 96; RESP 18; TEMP 36; O2SAT 98
[2023-09-07 05:19] LABS: Basophils Absolute Auto 0.1 K/mm3 (0.0-0.1); Basophils Percent Auto 0.3 % (0.2-1.2); Eosinophils Percent Auto 0.2 % (0-4.4); Hematocrit 34.9 % (37.0-47.0); Hemoglobin 10.6 g/dL (12.0-15.0); Immature Granulocyte Absolute 0.12 K/mm3 (0.00-0.031); Immature Granulocyte Percent A 0.6 % (0-0.5); Lymphocytes Absolute Auto 2.09 K/mm3 (0.9-3.2); Lymphocytes Percent Auto 10.6 % (18.3-44.2); Mean Corpuscular HGB Conc 30.4 g/dl (32-36); Mean Corpuscular Hemoglobin 26.1 pg (26-34); Mean Platelet Volume 11.4 fl (7.4-10.4); Monocytes Percent Auto 5.1 % (2.6-8.5); Neutrophils Absolute Auto 16.4 K/mm3 (1.3-6.7); Neutrophils Percent Auto 83.2 % (45.5-73.1); Platelet Count Result 294 k/mm3 (150-375); Red Blood Count 4.06 M/mm3 (4.2-5.4); Red Cell Distribution Width 16.3 % (11.5-14.5); White Blood Count 19.7 K/mm3 (4.5-10.0)
[2023-09-07] MEDS: IBUPROFEN 600 MG TABLET PO ×3 (05:28→21:02)
[2023-09-07 07:40] VITALS: BP 143/78; PULSE 86; RESP 18; TEMP 36.7; O2SAT 99
--- NOTE | 2023-09-07 07:52 | WPDANLDPN2 ---
Anes-Prog Note L&D Date/Time: 09/07/23 07:52 Comfortable throughout: section Neuraxial method: epidural Epidural/Spinal procedure site: clean & non-tender Neuro status: Neuro function grossly intact. Cardiovascular status: normal Respiratory status: normal Airway patency: baseline Mental status: baseline Post-Op hydration status: normal Vital Signs: Last Vital Signs Temp 36.0 C L 09/07/23 04:35 Pulse 96 09/07/23 04:35 Resp 18 09/07/23 04:35 BP 136/79 09/07/23 04:35 Pulse Ox 98 09/07/23 04:35 O2 Del Method Room Air 09/07/23 04:35 Pain score (VAS): 2/10 I/O: Intake & Output 09/06/23 09/06/23 09/07/23 15:59 23:59 07:59 Intake Total 1000 1000 100 Output Total 480 700 Balance 1000 520 -600 Post-procedural complaints: pruritis mild, no treatment Patient feedback: Patient satisfied with anesthetic care.
--- NOTE | 2023-09-07 07:53 | WPDANLDNPN2 ---
Anes-Prog Note L&D-Neuraxial Date/Time: 09/07/23 07:53 Neuraxial medications: epidural PF morphine Opiod-related complaints: none Patient feedback: Patient satisfied with post-operative pain management.
[2023-09-07] MEDS: HYDROcodone/acetaminophen (*CRX) 10-325 MG TABLET 1 TAB PO (07:56)
[2023-09-07] MEDS: SIMETHICONE 80 MG TAB.CHEW PO (07:56)
[2023-09-07 08:00] VITALS: PULSE 96; RESP 18; O2SAT 98
[2023-09-07] MEDS: KCL 20 MEQ/D5/0.45% SOD CHL 1,000 ML 125 ML IV CONT (08:03)
--- NOTE | 2023-09-07 08:06 | PM.OBPNVD ---
OB - PN: Subj Subjective Date/time seen: 09/07/23 0750 Interval history: Doing well. Not out of bed yet. Salcedo recently removed. Denies passing any large clots. Tolerating po food and fluids. Bonding with . . Denies PEREZ, visual changes, RUQ pain. Patient comments: pain well controlled and incisional pain baby status: nursing well (IV fluids infusing) [place] feeding status: exclusively breast feeding OB - PN: Obj Data Labs 09/07/23 03:22 09/05/23 00:15 Labs: Laboratory Results - last 24 hr 09/06/23 09/06/23 09/06/23 08:33 11:15 13:39 WBC RBC Hgb Hct MCV MCH MCHC RDW Plt Count MPV Immature Gran % (Auto) Neut % (Auto) Lymph % (Auto) [place] % (Auto) Eos % (Auto) Baso % (Auto) Lymph # (Auto) [place] # (Auto) Eos # (Auto) Baso # (Auto) Abs Immat Gran (auto) Absolute Neuts (auto) Absolute Nucleated RBC Nucleated RBC % POC Capillary Glucose 83 76 84 09/06/23 09/07/23 16:48 03:22 WBC 19.7 H RBC 4.06 L Hgb 10.6 L Hct 34.9 L MCV 86.0 MCH 26.1 MCHC 30.4 L RDW 16.3 H Plt Count 294 MPV 11.4 H Immature Gran % (Auto) 0.6 H Neut % (Auto) 83.2 H Lymph % (Auto) 10.6 L [place] % (Auto) 5.1 Eos % (Auto) 0.2 Baso % (Auto) 0.3 Lymph # (Auto) 2.09 [place] # (Auto) 1.0 H Eos # (Auto) 0.0 Baso # (Auto) 0.1 Abs Immat Gran (auto) 0.12 H Absolute Neuts (auto) 16.4 H Absolute Nucleated RBC 0.0 Nucleated RBC % 0.0 POC Capillary Glucose 87 OB - PN A/P Assessment and Plan (1) Delivery of first by section using transverse incision of lower segment of uterus: Code(s): O82 - Encounter for delivery without indication Status: Acute (2) GDM, class A2: Code(s): O24.419 - Gestational diabetes mellitus in , unspecified control Status: Acute (3) Preeclampsia: Code(s): O14.90 - Unspecified pre-eclampsia, unspecified trimester Status: Acute (4) Gestational diabetes: Code(s): O24.419 - Gestational diabetes mellitus in , unspecified control Status: Acute (5) Rubella non-immune status, antepartum: Code(s): O09.899 - Supervision of other high risk pregnancies, unspecified trimester; Z28.39 - Other underimmunization status Status: Acute (6) Mother currently breast-feeding: Code(s): Z39.1 - Encounter for care and examination of lactating mother Status: Acute Plan day: 1 Plan: routine care Time Spent With Patient Time: Total time spent is greater than 50% in coordination of care (as documented) at patient's floor/unit and/or counseling patient: Review of Systems Review of Systems: All systems reviewed & are unremarkable except as noted in HPI and below Exam Const: General: cooperative, no acute distress and awake Orientation/consciousness: patient oriented x3 Limitations: no limitations Resp: Effort & Inspection: normal respiratory effort and able to speak in complete sentences Auscultation: clear to auscultation bilaterally Cardio: Rate: regular rate Peripheral pulses: Peripheral pulses 2+ throughout GI: Inspection: normal to inspection Auscultation: normal bowel sounds : General: Yes bladder normal to palpation Speculum Exam - Vagina: vaginal bleeding Bimanual exam- vagina & uterus: bladder normal to palpation OB/external & speculum: vaginal bleeding Other: Fundus firm Skin: General skin exam: normal color Other: Incision C/D/I. Skin glue in place. Neuro: General: patient oriented x3 Cognition (Neuro): normal cognition Speech: normal speech Extrem: General: normal to inspection Psych: Appearance: grossly normal Mental Status: mental status grossly normal Speech and movement: Normal speech and movement present Affect: normal affect Attitude: cooperative Thought p
[2023-09-07 11:57] VITALS: BP 134/87; PULSE 100; RESP 16; TEMP 36.6; O2SAT 98
--- NOTE | 2023-09-07 13:56 | PC.NURSE ---
[id number] Primary RN is at bedside giving an antibiotic after requesting a call for assistance for mother. Introductions were made and mother is demonstrating skin to skin with unwrapped, upright on her chest. Encouraged stimulating with massage touch, changing positions to encourage wakefulness, how to watch for early feeding cues, responsive feeding, feeding on demand (aiming for 8-12 times in 24 hours, about every 2-3 hours), milk production, building/maintaining a milk supply, duration of feeding, signs of adequate intake/output and how to record on the feeding sheet. Mother works well with her with encouragement and education. Reviewed positioning and ear, shoulder, hip alignment, supporting the breast to facilitate a deep latch, asymmetrical latch (off-center), leading with the chin with a big, open, wide gape and body close to mother. Infant is sleepy and reluctant. At times infant will open mouth wide but will hold nipple in mouth with no effort to breastfeed or infant opens shallow with no effective effort. Mother voiced understanding of skin to skin, stimulating with massage touch, responsive feedings, hand expressed colostrum, talking to infant to encourage if it has been 2 -2.5 hours since the start of the last , to call if infant does not latch, or if there is discomfort with . Inpatient/outpatient resources provided with feeding sheet, name written on the communication board, and the mom/baby guide. Parents voiced understanding of information, demonstrated learning and will call if there is a request for assistance. Reported to the Primary RN.
[2023-09-07 16:00] VITALS: BP 133/83; PULSE 98; RESP 22; TEMP 36.6; O2SAT 98
[2023-09-07 21:44] VITALS: BP 149/102; PULSE 89; RESP 18; TEMP 36.6; O2SAT 99
[2023-09-08] MEDS: IBUPROFEN 600 MG TABLET PO ×2 (05:32→14:06)
[2023-09-08] MEDS: HYDROcodone/acetaminophen (*CRX) 5-325 MG TABLET 1 TAB PO ×3 (05:32→14:06)
[2023-09-08 05:40] VITALS: BP 150/90; PULSE 90; RESP 18; TEMP 36.4; O2SAT 100
[2023-09-08 06:55] VITALS: BP 166/101; PULSE 95; RESP 18; TEMP 36.7; O2SAT 100
--- NOTE | 2023-09-08 07:40 | PM.OBPNVD ---
OB - PN: Subj Subjective Date/time seen: 09/08/23 07:40 Interval history: Patient comments: no complaints and pain well controlled baby status: doing well and other (on antibiotics and may need bili lights) OB - PN: Obj Data Labs 09/07/23 03:22 09/05/23 00:15 OB - PN A/P Assessment and Plan (1) Preeclampsia: Code(s): O14.90 - Unspecified pre-eclampsia, unspecified trimester Status: Acute Assessment and Plan: last 2 BP increasing will restart Labetalol at lower dose of 100 mg q 12 hours and increase if needed Plan day: 2 Plan: routine care Time Spent With Patient Time: Total time spent is greater than 50% in coordination of care (as documented) at patient's floor/unit and/or counseling patient: Exam Narrative: inc c/d/i : Bimanual exam- vagina & uterus: other (Uterus firm, nt @U)
[2023-09-08] MEDS: MULTIVIT/MIN/PREN/FOL AC/IRON TABLET 1 TAB PO (09:27)
[2023-09-08] MEDS: DOCUSATE SODIUM 100 MG CAPSULE PO (09:28)
[2023-09-08 09:29] VITALS: PULSE 83
[2023-09-08] MEDS: LABETALOL HCL 100 MG TABLET PO (09:29)
[2023-09-08 09:30] VITALS: BP 151/91; PULSE 83
[2023-09-08] MEDS: MEASLES,MUMPS,RUBELLA VACCINE 0.5 ML VIAL SUB-Q (14:07)
== END 2023-09-08 14:15 | disposition home or self-care (01) | DRG 788 ==
LOC: ANHLDR 09-06 18:48 → ANHOB2 09-08 12:31 → ANHLDR 09-10 09:48 → ANHOB2 09-10 09:48
PROVIDERS: Advanced Practice Midwife; Admitting Provider Obstetrics & Gynecology Gynecology; Visit Provider Obstetrics & Gynecology Gynecology
PROC: 10D00Z1 Extraction of Products of Conception, Low, Open Approach (ICD-10-PCS; CPT 59514; principal; 2023-09-06 18:00)
DX: O24.424 Gestational diabetes mellitus in childbirth, insulin controlled (principal); Z37.0 Single live birth; Z3A.37 37 weeks gestation of pregnancy; O14.94 Unspecified pre-eclampsia, complicating childbirth; O40.3XX0 Polyhydramnios, third trimester, not applicable or unspecified; O36.8330 Maternal care for abnormalities of the fetal heart rate or rhythm, third trimester, not applicable or unspecified; O62.2 Other uterine inertia; O43.123 Velamentous insertion of umbilical cord, third trimester; O36.63X0 Maternal care for excessive fetal growth, third trimester, not applicable or unspecified
CPT/HCPCS: 36415; 80053; 82948; 85025; 86592; 86850; 86900; 86901; 88307; 90710; A9270; J1200; J2274; J2405; J2590; J2795; J3480; J7030; J7120

== ENCOUNTER 2025-05-01 10:52 | Observation (INO) | payer BC, SELFPAY ==
[2025-05-01] VITALS (14 sets, daily range): BP systolic 130–160; BP diastolic 74–100; PULSE 90–138; RESP 14–21; TEMP 36.3–39.4; O2SAT 96–100; BMI 39.4
--- NOTE | ~2025-05-01 | CT_ITS ---
EXAMINATION: CT abdomen pelvis wo ton, 05/01/2025 12:10 CDT HISTORY: right flank pain COMPARISON: No comparisons available. TECHNIQUE: CT scan of the abdomen and pelvis was performed without IV contrast. One or more of the following dose reduction techniques were used: automated exposure control, adjustment of the mA and/or kV according to patient size, use of iterative reconstruction technique. Unless otherwise stated, incidental findings do not require dedicated follow up imaging FINDINGS: CT abdomen: LUNG BASES: The lung bases are clear. The visualized portions of the heart and pericardium are unremarkable. LIVER: The liver is enlarged. Moderate hepatic steatosis. The liver measures 23 cm. SPLEEN: The spleen is enlarged. The spleen measures 12.5 cm.. KIDNEYS: Right Kidney: Right kidney mid pole 1 mm renal calculus with mild hydronephrosis and hydroureter with periureteral stranding although there is no obstructing distal calcified ureteral calculus. Left Kidney: Unremarkable. No calculi. No hydronephrosis ADRENAL GLANDS: Unremarkable. PANCREAS: Mild pancreatic atrophy. Prominent lymph nodes in the peripancreatic space and retroperitoneum. GALLBLADDER/BILIARY: Cholelithiasis. STOMACH AND ESOPHAGUS: Visualized stomach and esophagus within normal limits. BOWEL/MESENTERY: Moderate fecal content, no colitis or diverticulitis. Appendix normal. Mesentery normal. Small bowel normal. ADENOPATHY/RETROPERITONEUM: No lymphadenopathy. AORTA/VASCULATURE: Normal caliber aorta. FREE FLUID OR FREE AIR: No free fluid.. CT pelvis: SOLID ORGANS/REPRODUCTIVE: No adnexal mass. BLADDER: The bladder is distended. OSSEOUS STRUCTURES: No acute osseous abnormality.No suspicious lesions. OVERLYING SOFT TISSUES: Unremarkable. IMPRESSION: 1. Mild right-sided hydronephrosis and hydroureter although there is no obstructing distal calcified ureteral calculus. Findings may relate to a recently passed calculus however the differential includes an obstructing noncalcified calculus or stricture. Follow-up is recommended to assess. Reviewed, dictated and finalized at location A. IMPRESSION: 1. Mild right-sided hydronephrosis and hydroureter although there is no obstruc ting distal calcified ureteral calculus. Findings may relate to a recently pass ed calculus however the differential includes an obstructing noncalcified calcu raymond or stricture. Follow-up is recommended to assess.
--- NOTE | ~2025-05-01 | US_ITS ---
US abdomen limited INDICATION: Right flank pain. Transaminitis. PROCEDURE: Realtime right upper abdominal ultrasound. COMPARISON: No prior studies for comparison. FINDINGS: The pancreas is normal without focal mass or pancreatic ductal dilation. Liver echotexture is increased, consistent with fatty infiltration. There is normal directional flow in the portal vein. There are layering echogenic foci with shadowing in the gallbladder, consistent with stones. Common bile duct measures 4 mm. No sonographic Cronin's sign. Right kidney is unremarkable measuring 11.4 cm. IMPRESSION: 1: Gallstones. 2: Fatty infiltration of the liver. Reviewed, dictated and finalized at location O.
--- OUTSIDE RECORDS SUMMARY | 2025-05-01 10:15 | XMS_ITS | Encounter Summary ---
Author Organization [facility] Healthcare Address [address] [place] [address] Care Team Providers Care Security Messenger Name Role Phone Unknown, Notinfile Primary Care Provider Unavail able Reason for Visit * Reason Comments Urinary Symptom Chills, shaking, renetta k pain. Frequency in urination. 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 Gender Identity Not on file Sexual Orientation Not on file documented as of this encounter Last Filed Vital Signs Vital Sign Reading Time Taken Comments Blood Pressure 139/91 05/01/2025 10:11 AM CDT Pulse 134 05/01/2025 10:11 AM CDT Temperature 36.9 C (98.4 F) 05/01/2025 10:11 AM CDT Respiratory Rate 26 05/01/2025 10:11 AM CDT Oxygen Saturation 97% 05/01/2025 10:11 AM CDT Inhaled Oxygen Concentration - - Weight 97.5 kg (215 lb) 05/01/2025 10:11 AM CDT Height - - Body Mass Index - - documented in this encounter Plan of Treatment Scheduled Orders Name Type Priority Associated Diagnoses Orde r Schedule Urine culture Urine, clean voided Microbiology Routine Acute cystitis with hematuria Expected: 05/01/2025, Expires: 05/01/2026 documented as of this encounter Procedures Procedure Name Priority Date/Time Associated Diagnosis Comments POCT URINALYSIS DIPSTICK Routine 05/01/2025 10:15 AM CDT Acute cystitis with hematuria documented in this encounter Results * (ABNORMAL) POCT urinalysis dipstick (05/01/2025 10:15 AM CDT) Color, Urine, POC Tanya Clarity, ur, POC Cloudy(A) Clear Glucose, ur, POC 1000.(A) Negative Bilirubin, ur, POC Negative Negative Ketones, ur, POC 80.(A) Negative Specific [place], POC 1.020 1.003 - 1.030 Blood, ur, POC Moderate(A) Negative pH, ur, POC 6.0 5.0 - 8.0 Protein, ur, POC 100.(A) Negative Urobilinogen, urine, POC 0.2 0.2 - 1.0 mg/dL Nitrite, ur, POC Positive(A) Negative Leukocytes, ur, POC Small(A) Negative Lot Number [id number] Urine 05/01/2025 10:1 5 AM CDT Chastity Oglesby NP POINT OF CARE TEST ORDERABLES Final Result documented in this encounter Visit Diagnoses Diagnosis Acute cystitis with hematuria- Primary documented in this encounter Historical Medications * This list may reflect changes made after this encounter. escitalopram (LEXAPRO) 20 mg tablet Take 1 tablet (20 mg total) by mouth daily added in this encounter Care Teams Security Messenger Relationship Specialty Start Date End Date Unknown, Notinfile PCP - General 05/01/25 documented as of this encounter
--- OUTSIDE RECORDS SUMMARY | 2025-05-01 10:15 | XMS_ITS | Encounter Summary ---
Author Organization [facility] Healthcare Address [address] [place] [address] Care Team Providers Care Sales Consulting Director Name Role Phone Unknown, Notinfile Primary Care Provider Unavail able Reason for Visit * Reason Comments Urinary Symptom Chills, shaking, renetta k pain. Frequency in urination. 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 Gender Identity Not on file Sexual Orientation [...] Negative Ketones, ur, POC 80.(A) Negative Specific [place], POC 1.020 1.003 - 1.030 Blood, ur, POC Moderate(A) Negative pH, ur, POC 6.0 5.0 - 8.0 Protein, ur, POC 100.(A) Negative Urobilinogen, urine, POC 0.2 0.2 - 1.0 mg/dL Nitrite, ur, POC Positive(A) Negative Leukocytes, ur, POC Small(A) Negative Lot Number [id number] Urine 05/01/2025 10:1 5 AM CDT Chastity [...] daily added in this encounter Care Teams Sales Consulting Director Relationship Specialty Start Date End Date Unknown, Notinfile PCP - General 05/01/25 documented as of this encounter
--- OUTSIDE RECORDS SUMMARY | 2025-05-01 10:55 | XMS_ITS | Clinical Summary ---
Author Organization [facility] Address [address] [place] [phone] Phone Care Team Providers Care Cnc Programmer Name Role Phone Unavailable Primary Care Provider Unavailabl e Social History Tobacco Use Types Packs/Day Years Used Date Smoking Tobacco: Never Assessed Comments Unknown Sex and Gender Information Value Date Recorded Sex Assigned at Not on file Legal Sex Female 11:28 AM CDT Gender Identity Not on file Sexual Orientation Not on file Plan of Treatment Health Maintenance Due Date Last Done Comments DTAP/TDAP/TD VACCINES (1 - Tdap) 12/05/2011 HEPATITIS B VACCINES (1 of 3 - 19+ 3-dose series) 11/2011 HPV/Cotest (21-29) 2013 HPV VACCINES (1 - 3-dose SCDM series) 12/05/2019 CERVICAL CANCER SCREENING 2022 HPV/Cotest (30-65) 2022 PAP SMEAR 2022 INFLUENZA VACCINE (#1) 2025 Insurance [facility] [employer] CHOICE
--- OUTSIDE RECORDS SUMMARY | 2025-05-01 10:55 | XMS_ITS | Clinical Summary ---
Author Organization [address] [address] Care Team Providers Care Carpenter Ship Name Role Phone Unknown, Notinfile Primary Care Provider Unavail able Allergies No known active allergies Medications escitalopram (LEXAPRO) 20 mg tablet Take 1 tablet (20 mg total) by mouth daily Active Active Problems No known active problems Encounters Date Type Department Care Team Description 05/01/2025 10:15 AM CDT Office Visit [facility] at [address] [phone] Chastity Oglesby NP Acute cystitis with hematuria (Primary Dx) from Last 3 Months Social History Tobacco Use Types Packs/Day Years Used Date Smoking Tobacco: Never Assessed Comments Unknown Sex and Gender Information Value Date Recorded Sex Assigned at Not on file Legal 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 Gender Identity Not on file Sexual Orientation Not on file Obstetrics History Last Filed Vital Signs Vital Sign Reading [...] - - Body Mass Index - - Plan of Treatment Health Maintenance Due Date Last Done Comments Cervical Cancer Screening 1992 Depression Screening 1992 Hepatitis C Screening 1992 Varicella Vaccines (1 of 2 - 13+ 2-dose series) 2005 Hepatitis B Screening 2010 Regular Well Visit/Exam 18-64 2010 HPV Vaccines (1 - 3-dose SCDM series) 12/05/2019 Influenza Vaccine (#1) 2025 , 07/17/2021, 06/04/2018 DTaP/Tdap/Td Vaccine (2 - Td or Tdap) 08/24/2034 08/24/2024 Covid-19 Vaccine Completed 08/24/2024, , 07/17/2021, Additional history exists Pneumococcal vaccine <65 Aged Out No longer eligible based on patient's age to complete this topic Procedures Procedure Name Priority Date/Time Associated Diagnosis Comments POCT URINALYSIS DIPSTICK Routine 05/01/2025 10:15 AM CDT Acute cystitis with hematuria from Last 3 Months Results * (ABNORMAL) POCT urinalysis dipstick (05/01/2025 10:15 AM CDT) Color, Urine, POC Tanya Clarity, ur, POC Cloudy(A) Clear Glucose, ur, POC 1000.(A) Negative Bilirubin, ur, POC Negative Negative Ketones, ur, POC 80.(A) Negative Specific [place], POC 1.020 1.003 - 1.030 Blood, ur, POC Moderate(A) Negative pH, ur, POC 6.0 5.0 - 8.0 Protein, ur, POC 100.(A) Negative Urobilinogen, urine, POC 0.2 0.2 - 1.0 mg/dL Nitrite, ur, POC Positive(A) Negative Leukocytes, ur, POC Small(A) Negative Lot Number [id number] Urine 05/01/2025 10:1 5 AM CDT Chastity Oglesby NP POINT OF CARE TEST ORDERABLES Final Result from Last 3 Months Insurance [facility] ACCESS CHOICE Care Teams Carpenter Ship Relationship Specialty Start Date End Date Unknown, Notinfile PCP - General 05/01/25
--- OUTSIDE RECORDS SUMMARY | 2025-05-01 11:30 | XMS_ITS | Clinical Summary ---
Author Organization [facility] Address [address] [place] [phone] Phone Care Team Providers Care Command Post Craftsman Name Role Phone Unavailable Primary Care Provider [...] SMEAR 2022 INFLUENZA VACCINE (#1) 2025 Insurance [facility] [employer] CHOICE
--- OUTSIDE RECORDS SUMMARY | 2025-05-01 11:30 | XMS_ITS | Clinical Summary ---
Author Organization [address] [address] Care Team Providers Care Proposal Development Manager Name Role Phone Unknown, Notinfile Primary Care Provider Unavail able Allergies No known active allergies Medications escitalopram (LEXAPRO) 20 mg tablet Take 1 tablet (20 mg total) by mouth daily Active Active Problems No known active problems Encounters Date Type Department Care Team Description 05/01/2025 10:15 AM CDT Office Visit [facility] at [address] [phone] Chastity Oglesby NP Acute cystitis with hematuria (Primary Dx) from Last 3 Months Social History Tobacco Use Types Packs/Day Years Used Date Smoking Tobacco: Never Assessed Comments Unknown Sex and Gender Information Value Date Recorded Sex Assigned at Not on file 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 Gender Identity Not on file Sexual Orientation [...] Negative Ketones, ur, POC 80.(A) Negative Specific [place], POC 1.020 1.003 - 1.030 Blood, ur, POC Moderate(A) Negative pH, ur, POC 6.0 5.0 - 8.0 Protein, ur, POC 100.(A) Negative Urobilinogen, urine, POC 0.2 0.2 - 1.0 mg/dL Nitrite, ur, POC Positive(A) Negative Leukocytes, ur, POC Small(A) Negative Lot Number [id number] Urine 05/01/2025 10:1 5 AM CDT Chastity Oglesby NP POINT OF CARE TEST ORDERABLES Final Result from Last 3 Months Insurance [facility] ACCESS CHOICE Care Teams Proposal Development Manager Relationship Specialty Start Date End Date Unknown, Notinfile PCP - General 05/01/25
[2025-05-01 11:36] LABS: BEDSIDEPREGUCG Negative (Negative)
[2025-05-01] MEDS: SODIUM CHLORIDE 0.9% IV 1,000 ML 999 ML IV CONT (11:37)
[2025-05-01 11:40] LABS: Hematocrit 40.2 % (37.0-47.0); Hemoglobin 13.6 g/dL (12.0-15.0); Immature Granulocyte Percent A 0.5 % (0-0.5); Lymphocytes Absolute Auto 1.23 K/mm3 (0.9-3.2); Mean Corpuscular HGB Conc 33.8 g/dl (32-36); Mean Corpuscular Hemoglobin 26.7 pg (26-34); Mean Corpuscular Volume 78.8 fl (80-100); Nucleated Red Blood Cells Absolute Auto 0.000 K/mm3 (0.0-0.012); Nucleated Red Blood Cells Perc 0.0 % (0.0-0.2); Platelet Count Result 291 k/mm3 (150-375); Red Blood Count 5.10 M/mm3 (4.2-5.4); White Blood Count 19.2 K/mm3 (4.5-10.0)
[2025-05-01 11:44] LABS: Add Urine Microscopic? YES; Appearance Urine Turbid (Clear); Glucose Urine UA 3+ mg/dL (Negative); Leukocyte Esterase Ur 2+ LEU/UL (Negative); Nitrate Urine Positive (Negative); Non Pathogenic Casts 0-2; Specific Grav Ur 1.029 (1.001-1.035)
[2025-05-01 11:51] LABS: INR 1.2; Prothrombin Time 15.1 Seconds (11.1-14.7)
[2025-05-01 11:52] LABS: Alanine Aminotransferase 73 U/L (6-35); Albumin Level 4.5 g/dL (3.5-5.1); Alkaline Phosphatase 139 U/L (38-126); Anion Gap 13 mmol/L (4-12); Aspartate Amino Transferase 73 U/L (14-36); Bilirubin,Total 3.0 mg/dL (0.2-1.3); Blood Urea Nitrogen 5 mg/dL (7-17); Calcium 9.3 mg/dL (8.4-10.2); Carbon Dioxide 19 mmol/L (22-30); Chloride 101 mmol/L (98-107); Estimated CRCL calculation 160 ml/min; Estimated Glomerular Filt Rate > 60; Glucose 286 mg/dL (65-110); Partial Thromboplastin Time 36.2 Seconds (22.3-36.8); Potassium 3.8 mmol/L (3.4-5.0); Sodium 133 mmol/L (137-145); Total Protein 8.7 g/dL (6.3-8.2)
[2025-05-01] MEDS: LACTATED RINGERS 1,000 ML 999 ML IV CONT ×2 (12:05→20:25)
--- NOTE | 2025-05-01 12:11 | ED.GENADULT ---
HPI - General Adult General Chief complaint: Urogenital-Female Stated complaint: poss kidney stone Time Seen by Provider: 05/01/25 11:11 History of Present Illness HPI narrative: 34-year-old female presenting to the emergency department for evaluation for approximately 1 week of urinary tract symptoms and 4 days of right flank pain. Patient presented to the urgent care and was describing her symptoms and they referred her to the emergency department for further evaluation. Patient was tachycardic upon arrival and ill-appearing. Patient denies any prior history of kidney stones. Related Data Home Medications ?Medication ?Instructions ?Recorded ?Confirmed ?Last Taken ?Type escitalopram oxalate 20 mg tablet 20 mg PO DAILY 08/17/23 05/01/25 04/30/25 22:00 History Allergies Allergy/AdvReac Type Severity Reaction Status Date / Time No Known Allergies Allergy Verified 05/01/25 10:52 Review of Systems Review of Systems: All systems reviewed & are unremarkable except as noted in HPI and below PMFSH Past Medical History Medical History (Updated 05/01/25 @ 14:59 by Anusha Prater, RECRUITER MANAGER) History of smoking for 1-2 years and not yet delivered Obesity Suicide attempt Anxiety and depression Morbid obesity Gestational diabetes Family History Family History Sibling Franco disease Father Diabetes mellitus Mother Hypertension Father Hypertension Mother Breast cancer Social History Social History Years smoked: 2 Smoking status: Former smoker Tobacco type: cigarettes Second hand tobacco smoke exposure: No Smoking end date: 09/20/18 Substance use: never Do You Feel Safe in your Home?: No Lack of Transportation: No Lack of Food: Never True Current Housing: I Have Housing Concerned About Future Housing: No Difficulty Paying Gas/Electric Bills: No Difficulty Paying for Meds: No Currently Unemployed: No Education: Bachelor's Degree Difficulty w/ Childcare or Family Care: No Spiritual care concerns: No Exam Narrative: APPEARANCE: Ill-appearing HEAD: normocephalic, atraumatic. EYES: PERRLA/EOMI, conjunctivae clear. NOSE: Normal no drainage EARS:TMS clear with good light reflex. THROAT: Pharynx clear, no exudate. NECK: Supple. No adenopathy, no masses. RESPIRATORY: Airway patent, respirations nonlabored. Clear to auscultation bilaterally, no rales, rhonchi, wheezing. CARDIOVASCULAR: Regular rate and rhythm without murmurs rubs or gallops. ABDOMINAL: Lower abdominal tenderness to palpation, right flank MUSCULOSKELETAL: Moves all extremities. Strength/ROM intact, No edema, No calf tenderness. NEURO: Alert. Cranial nerves II through XII intact. Good gait. Good coordination SKIN: Warm, dry. Normal Color Course Vital Signs Vital signs: Vital Signs Temperature 97.3 F L 05/01/25 11:08 Pulse Rate 138 H 05/01/25 11:08 Respiratory Rate 16 05/01/25 11:08 Blood Pressure 160/100 H 05/01/25 11:08 Pulse Oximetry 98 05/01/25 11:08 Temperature 99.3 F 05/01/25 16:00 Pulse Rate 128 H 05/01/25 16:00 Respiratory Rate 21 H 05/01/25 16:00 Blood Pressure 132/74 05/01/25 16:00 Pulse Oximetry 97 05/01/25 16:00 Oxygen Delivery Room Air 05/01/25 15:56 Medical Decision Making [facility] Narrative Medical decision making narrative: 34-year-old female presents emergency department for evaluation for urinary symptoms. Patient is afebrile but does have a white count of 19.2 and hemoglobin of 13.6. INR is 1.2, patient does have lactic acid of 2.6 blood glucose of 286 and anion gap of 13 along with elevated T bili AST ALT alk-phos, urine is consistent with a urinary tract infection with high white blood cells nitrate positive and +4 bacteria. Patient was treated with 2 L of lactated Ringer's along with IV Rocephin. CT scan was ordered to evaluate for ureteral calculi. Differential Diagnosis Differential Diagnosis: Ureteral calculi, kidney stone, pyelonephritis, UTI, cystitis, transaminitis, cholelithiasis, cholecystitis Vital Signs Vital Signs: Vital Signs Temperature 97.3 F L 05/01/25 11:08 Pulse Rate 138 H 05/01/25 11:08 Respiratory Rate 16 05/01/25 11:08 Blood Pressure 160/100 H 05/01/25 11:08 Pulse Oximetry 98 05/01/25 11:08 Temperature 99.3 F 05/01/25 16:00 Pulse Rate 128 H 05/01/25 16:00 Respiratory Rate 21 H 05/01/25 16:00 Blood Pressure 132/74 05/01/25 16:00 Pulse Oximetry 97 05/01/25 16:00 Oxygen Delivery Room Air 05/01/25 15:56 Lab Data Lab results reviewed: Yes I reviewed the patient's lab results. 05/01/25 11:31 05/01/25 11:31 Labs: Lab Results 05/01/25 05/01/25 Range/Units 11:31 11:35 WBC 19.2 H (4.5-10.0) K/mm3 RBC 5.10 (4.2-5.4) M/mm3 Hgb 13.6 D (12.0-15.0) g/dL Hct 40.2 (37.0-47.0) % MCV 78.8 L (80-100) fl MCH 26.7 (26-34) pg MCHC 33.8 (32-36) g/dl RDW 14.8 H (11.5-14.5) % Plt Count 291 (150-375) k/mm3 MPV 9.0 (7.4-10.4) fl Immature Gran % (Auto) 0.5 (0-0.5) % Neut % (Auto) 88.2 H (45.5-73.1) % Lymph % (Auto) 6.4 L (18.3-44.2) % [place] % (Auto) 4.3 (2.6-8.5) % Eos % (Auto) 0.2 (0-4.4) % Baso % (Auto) 0.4 (0.2-1.2) % Lymph # (Auto) 1.23 (0.9-3.2) K/mm3 [place] # (Auto) 0.8 H (0.1-0.6) K/mm3 Eos # (Auto) 0.0 (0-0.3) K/mm3 Baso # (Auto) 0.1 (0.0-0.1) K/mm3 Abs Immat Gran (auto) 0.10 H (0.00-0.031) K/mm3 Absolute Neuts (auto) 17.0 H (1.3-6.7) K/mm3 Absolute Nucleated RBC 0.000 (0.0-0.012) K/mm3 Nucleated RBC % 0.0 (0.0-0.2) % PT 15.1 H (11.1-14.7) Seconds INR 1.2 APTT 36.2 (22.3-36.8) Seconds Sodium 133 L (137-145) mmol/L Potassium 3.8 (3.4-5.0) mmol/L Chloride 101 (98-107) mmol/L Carbon Dioxide 19 L (22-30) mmol/L Anion Gap 13 H (4-12) mmol/L BUN 5 L (7-17) mg/dL Creatinine 0.46 L (0.7-1.0) mg/dL Estim Creat Clear Calc 160 ml/min Estimated GFR > 60 (59 - ) Glucose 286 H (65-110) mg/dL Lactic Acid 2.6 H (0.7-2.0) mmol/L Calcium 9.3 (8.4-10.2) mg/dL Total Bilirubin 3.0 H (0.2-1.3) mg/dL AST 73 H (14-36) U/L ALT 73 H (6-35) U/L Alkaline Phosphatase 139 H (38-126) U/L Total Protein 8.7 H (6.3-8.2) g/dL Albumin 4.5 (3.5-5.1) g/dL Urine Color Dark yellow (Yellow) Urine Appearance Turbid H (Clear) Urine pH 6.0 (5.0-9.0) Ur Specific [place] 1.029 (1.001-1.035) Urine Protein 2+ H (Negative) mg/dL Urine Glucose (UA) 3+ H (Negative) mg/dL Urine Ketones 3+ H (Negative) mg/dL Ur Blood (Man) 1+ H (Negative) Urine Nitrate Positive H (Negative) Urine Bilirubin 1+ H (Negative) Urine Urobilinogen 1.0 (<2.0) mg/dL Leukocyte Esterase Rfl 2+ H (Negative) DAYNE/UL Urine RBC 6-10 H (0-2) /hpf Urine WBC >100 H (0-3) /hpf Ur Squamous Epith Cells Occasional (Few) /hpf Urine Bacteria 4+ H /hpf Urine Casts 0-2 POC Urine HCG, Qual Negative (Negative) Imaging Data Radiologist's impression: Impressions Abdomen/Pelvis CT 05/01/25 12:39 IMPRESSION: 1. Mild right-sided hydronephrosis and hydroureter although there is no obstructing distal calcified ureteral calculus. Findings may relate to a recently passed calculus however the differential includes an obstructing noncalcified calculus or stricture. Follow-up is recommended to assess. Abdomen Ultrasound 05/01/25 13:24 IMPRESSION: 1: Gallstones. 2: Fatty infiltration of the liver. Discharge Plan Discharge Clinical Impression: Pyelonephritis Patient Disposition: Still a Patient Condition: Serious
[2025-05-01] MEDS: ACETAMINOPHEN 500 MG TABLET 1000 MG PO (13:37)
[2025-05-01] MEDS: cefTRIAXone 1 GM in SODIUM CHLORIDE 0.9% IV 50 ML 100 ML IVPB (13:37)
[2025-05-01] MEDS: ONDANSETRON INJ 4 MG/2 ML VIAL IV PUSH (13:38)
[2025-05-01] MEDS: KETOROLAC 15 MG/ML VIAL (*BKC) IV PUSH ×2 (14:46→22:44)
[2025-05-01] MEDS: SODIUM CHLORIDE 0.9% IV 1,000 ML 100 ML IV CONT (14:46)
--- NOTE | 2025-05-01 14:53 | P.HP_ITS ---
H&P: HPI History of Present Illness Date/Time: 05/01/25 14:53 Chief Complaint: Right flank pain Narrative: 34-year-old female with history of anxiety and depression, gestational diabetes presents the hospital with right flank pain. She states that she had a urinary tract infection last week and progressively got worse with right flank pain so she went to urgent care. Because of tachycardia they recommended her going to the hospital. Patient complains also of nausea vomiting, shortness of breath, fevers chills, polyuria, polydipsia, a.m. polyphagia. Patient has leukocytosis 19.2, sodium of 133 chloride of 19, anion gap 13, BUN of dot creatinine of 0.46 glucose of 286, lactic acid 2.6, total bili of 3.0, AST of 73, ALT of 73, alkaline phos of 139, UA is turbid with positive for nitrates, 2+ leukocyte esterase, over 100 wbc's and 4+ bacteria. CT showing Mild right-sided hydronephrosis and hydroureter although there is no obstructing distal calcified ureteral calculus. Abdominal ultrasound showing gallstones and a fatty liver. Review of Systems Review of Systems: 12 systems were reviewed and are negativ e except for as per HPI. [facility] Past Medical History Medical History (Updated 05/01/25 @ 14:59 by Anusha Prater, KEYSMITH) History of smoking for 1-2 years and not yet delivered Obesity Suicide attempt Anxiety and depression Morbid obesity Gestational diabetes Family History Family History Sibling Franco disease Father Diabetes mellitus Mother Hypertension Father Hypertension Mother Breast cancer Social History Social History Years smoked: 2 Smoking status: Former smoker Tobacco type: cigarettes Second hand tobacco smoke exposure: No Smoking end date: 09/20/18 Substance use: never Do You Feel Safe in your Home?: No Lack of Transportation: No Lack of Food: Never True Current Housing: I Have Housing Concerned About Future Housing: No Difficulty Paying Gas/Electric Bills: No Difficulty Paying for Meds: No Currently Unemployed: No Education: Bachelor's Degree Difficulty w/ Childcare or Family Care: No Spiritual care concerns: No Meds Home Medications and Allergies Home Medications ?Medication ?Instructions ?Recorded ?Confirmed ?Type escitalopram oxalate 20 mg tablet 20 mg PO DAILY 08/1705/01/25 History Allergies Allergy/AdvReac Type Severity Reaction Status Date / Time No Known Allergies Allergy Verified 05/01/25 10:52 Vital Signs Vital Signs - 24 hr 05/01/25 11:08 05/01/25 11:39 05/01/25 11:43 Temperature 97.3 F L 97.9 F Pulse Rate 138 H 114 H 118 H Respiratory Rate 16 18 16 Blood Pressure 160/100 H 150/91 H Pulse Oximetry 98 97 98 05/01/25 12:30 05/01/25 13:30 05/01/25 13:31 Temperature 103.0 F H Pulse Rate 126 H 138 H Respiratory Rate 18 20 Blood Pressure 145/81 H 160/98 H Pulse Oximetry 100 99 99 05/01/25 13:45 05/01/25 14:00 Temperature Pulse Rate Respiratory Rate Blood Pressure Pulse Oximetry 96 100 Exam Narrative: General: well appearing, appears stated age. HEENT: normocephalic, atraumatic. Mucous membranes moist. EOMI, PERRLA, bilateral sclera anicteric, no conjunctival injection. Neck supple without JVD, lymphadenopathy, or bruit. Respiratory: clear to ascultation bilaterally. No rales/rhonic/wheezes. Cardiovascular: Regular rate and rhythm, normal S1-S2 upon ascultation. No murmurs, rubs, or clicks. PMI is nondisplaced, capillary refill less than 3 second. Abdomen: Soft, round, no pulsatile masses, nondistended and nontender. No rebound, no guarding. No CVA tenderness, no hepatosplenomegaly. Bowel sounds present to all four quadrants. No high pitch or tinkling sounds, resonant to percussion. Extremities: No cyanosis, clubbing, or edema present. Pulses are palpable 2/2. Active ROM to all four extremities. Neuro: Alert and orientated x 4. PERRLA. Cranial nerves 2-12 intact without focal deficit. Skin: Warm, dry, and intact, without rash, erythema, or lesion. Psych: pleasant, cooperative, normal speech, normal affect, no hallucinations, no dysarthia H&P: Results Labs Labs: Short CBC 05/01/25 Range/Units 11:31 WBC 19.2 H (4.5-10.0) K/mm3 Hgb 13.6 D (12.0-15.0) g/dL Hct 40.2 (37.0-47.0) % Plt Count 291 (150-375) k/mm3 BMP 05/01/25 11:31 Sodium 133 L Potassium 3.8 Chloride 101 Carbon Dioxide 19 L BUN 5 L Creatinine 0.46 L Glucose 286 H Calcium 9.3 Liver Function 05/01/25 Range/Units 11:31 Total Bilirubin 3.0 H (0.2-1.3) mg/dL AST 73 H (14-36) U/L ALT 73 H (6-35) U/L Alkaline Phosphatase 139 H (38-126) U/L Albumin 4.5 (3.5-5.1) g/dL Urine 05/01/25 Range/Units 11:31 Urine Color Dark yellow (Yellow) Urine Appearance Turbid H (Clear) Urine pH 6.0 (5.0-9.0) Ur Specific [place] 1.029 (1.001-1.035) Urine Protein 2+ H (Negative) mg/dL Urine Glucose (UA) 3+ H (Negative) mg/dL Assessment and Plan Assessment and plan (1) Pyelonephritis: Code(s): N12 - Tubulo-interstitial nephritis, not specified as acute or chronic Status: Acute Assessment and Plan: IV Rocephin Cultures and sensitivity pending IVF (2) Fatty liver: Code(s): K76.0 - Fatty (change of) liver, not elsewhere classified Status: Acute Assessment and Plan: CMP in the morning LFTs slightly elevated will consult GI for follow-up (3) Hyperglycemia: Code(s): R73.9 - Hyperglycemia, unspecified Status: Acute Assessment and Plan: Hemoglobin A1c 8.1 consumer educator Nida HENSLEY Diabetic diet Lantus and SSI (4) Lactic acid acidosis: Code(s): E87.20 - Acidosis, unspecified Status: Acute Assessment and Plan: On presentation patient is tachycardia rate of 138, fever I will 103.0, hypertensive 160/98 Patient received 2 L of IV fluids Repeat lactic Quality VTE Prophylaxis VTE prophylaxis: mechanical ordered Hospitalist MIPS Advance Care Plan I have confirmed that the patient's Advanced Care Plan is present, code status is documented, or surrogate decision maker is listed in patient medical record.: Yes Medication Reconciliation I have utilized all available resources to obtain, update and review the sylvia manzo current medications (includes all prescriptions, OTC, herbals, cannabis, and nutritional supplements).: Yes
--- NOTE | 2025-05-01 15:29 | ADMGEN ---
This patient, Mariam Gamboa, was admitted to IMU Room 200-01. Patient/family oriented to hospital policies and general routines including ID bracelet, bed and alarms, visiting hours, pain management, procedures, bathroom and other care routines, personal items, smoking policy, room service/diet, and visiting hours. Information on how to activate the Rapid Response Team has been discussed. Patient/Family are encouraged to report perceived risks to care and to ask questions if they do not understand what they are told or what they should do.
[2025-05-01 18:08] LABS: Hemoglobin A1C 8.1 % (<5.7)
[2025-05-01 18:18] LABS: Beta-Hydroxybutyrate/Acetoace. 0.95 mmol/L (0.02-0.27)
[2025-05-01 18:39] LABS: Thyroid Stimulating Hormone 0.648 uIU/mL (0.465-4.680)
[2025-05-01 18:50] LABS: Alveolar/Arterial O2 Gradient 16.8 mmHg; Carboxyhemoglobin 1.1 % THb (0-2.0); Fractional Inspired Oxygen 21 %; HCO3 ABG 19.3 mEq/l (22.0-26.0); Methemoglobin ABG 0.3 %THb (0-1.5); Oxygen Content ABG 16.6 %vol (16.0-22.0); Oxygen Saturation ABG 97.8 % (95.0-100.0); PCO2 ABG 28.4 mmHg (35.0-45.0); PO2 ABG 98.9 mmHg (80.0-100.0); PO2 FiO2 Ratio Arterial Blood 4.71 %; Reduced Hemoglobin 2.3 %THb (0-5.0)
[2025-05-01 18:51] LABS: Liters per Minute 0.0 LPM; Modified Allen's Test Pass; Site Drawn LEFT RADIAL
[2025-05-01] MEDS: LACTATED RINGERS 1,000 ML 100 ML IV CONT (20:26)
[2025-05-01] MEDS: ACETAMINOPHEN 325 MG TABLET 650 MG PO (22:44)
[2025-05-01] MEDS: INSULIN GLARGINE (*BKC) 100 UNITS/ML 15 UNITS SUB-Q (22:46)
[2025-05-02] VITALS (14 sets, daily range): BP systolic 112–152; BP diastolic 57–89; PULSE 92–121; RESP 14–20; TEMP 36.5–37.3; O2SAT 97–100
[2025-05-02 04:14] LABS: Hematocrit 36.3 % (37.0-47.0); Hemoglobin 11.7 g/dL (12.0-15.0); Immature Granulocyte Percent A 0.6 % (0-0.5); Lymphocytes Absolute Auto 2.10 K/mm3 (0.9-3.2); Mean Corpuscular HGB Conc 32.2 g/dl (32-36); Mean Corpuscular Hemoglobin 26.5 pg (26-34); Mean Corpuscular Volume 82.1 fl (80-100); Nucleated Red Blood Cells Absolute Auto 0.000 K/mm3 (0.0-0.012); Nucleated Red Blood Cells Perc 0.0 % (0.0-0.2); Platelet Count Result 211 k/mm3 (150-375); Red Blood Count 4.42 M/mm3 (4.2-5.4); White Blood Count 13.4 K/mm3 (4.5-10.0)
[2025-05-02 05:10] LABS: Alanine Aminotransferase 49 U/L (6-35); Albumin Level 3.5 g/dL (3.5-5.1); Alkaline Phosphatase 90 U/L (38-126); Anion Gap 11 mmol/L (4-12); Aspartate Amino Transferase 50 U/L (14-36); Bilirubin,Total 1.6 mg/dL (0.2-1.3); Blood Urea Nitrogen 4 mg/dL (7-17); Calcium 8.8 mg/dL (8.4-10.2); Carbon Dioxide 21 mmol/L (22-30); Chloride 106 mmol/L (98-107); Estimated CRCL calculation 178 ml/min; Estimated Glomerular Filt Rate > 60; Glucose 205 mg/dL (65-110); Potassium 3.5 mmol/L (3.4-5.0); Sodium 138 mmol/L (137-145); Total Protein 6.9 g/dL (6.3-8.2)
[2025-05-02] MEDS: LACTATED RINGERS 1,000 ML 100 ML IV CONT ×2 (07:26→18:42)
[2025-05-02] MEDS: KETOROLAC 15 MG/ML VIAL (*BKC) IV PUSH ×2 (07:27→13:35)
--- NOTE | 2025-05-02 08:25 | P.PNIM_ITS ---
Progress Note: A&P Assessment and Plan (1) Pyelonephritis: Code(s): N12 - Tubulo-interstitial nephritis, not specified as acute or chronic Status: Acute Assessment and Plan: IV Rocephin Cultures and sensitivity pending IVF (2) Fatty liver: Code(s): K76.0 - Fatty (change of) liver, not elsewhere classified Status: Acute Assessment and Plan: CMP in the morning LFTs slightly elevated will consult GI for follow-up (3) Hyperglycemia: Code(s): R73.9 - Hyperglycemia, unspecified Status: Acute Assessment and Plan: Hemoglobin A1c 8.1 nurse educator Nida ramos HS Diabetic diet Lantus and SSI (4) Lactic acid acidosis: Code(s): E87.20 - Acidosis, unspecified Status: Acute Assessment and Plan: On presentation patient is tachycardia rate of 138, fever I will 103.0, hypertensive 160/98 Patient received 2 L of IV fluids Repeat lactic Subjective Date/time seen: 05/02/25 08:25 Review of Systems Review of Systems: 12 systems were reviewed and are negativ e except for as per HPI. Exam Narrative: General: well appearing, appears stated age. HEENT: normocephalic, atraumatic. Mucous membranes moist. EOMI, PERRLA, bilateral sclera anicteric, no conjunctival injection. Neck supple without JVD, lymphadenopathy, or bruit. Respiratory: clear to ascultation bilaterally. No rales/rhonic/wheezes. Cardiovascular: Regular rate and rhythm, normal S1-S2 upon ascultation. No murmurs, rubs, or clicks. PMI is nondisplaced, capillary refill less than 3 second. Abdomen: Soft, round, no pulsatile masses, nondistended and nontender. No rebound, no guarding. No CVA tenderness, no hepatosplenomegaly. Bowel sounds present to all four quadrants. No high pitch or tinkling sounds, resonant to percussion. Extremities: No cyanosis, clubbing, or edema present. Pulses are palpable 2/2. Active ROM to all four extremities. Neuro: Alert and orientated x 4. PERRLA. Cranial nerves 2-12 intact without focal deficit. Skin: Warm, dry, and intact, without rash, erythema, or lesion. Psych: pleasant, cooperative, normal speech, normal affect, no hallucinations, no dysarthia Objective Data Vital Signs Vital Signs: Vital Signs - 24 hr 05/01/25 11:08 05/01/25 11:39 05/01/25 11:43 Temperature 97.3 F L 97.9 F Pulse Rate 138 H 114 H 118 H Respiratory Rate 16 18 16 Blood Pressure 160/100 H 150/91 H Pulse Oximetry 98 97 98 Oxygen Delivery 05/01/25 12:30 05/01/25 13:30 05/01/25 13:31 Temperature 103.0 F H Pulse Rate 126 H 138 H Respiratory Rate 18 20 Blood Pressure 145/81 H 160/98 H Pulse Oximetry 100 99 99 Oxygen Delivery 05/01/25 13:45 05/01/25 14:00 05/01/25 14:45 Temperature 99.9 F H Pulse Rate Respiratory Rate Blood Pressure Pulse Oximetry 96 100 Oxygen Delivery 05/01/25 15:56 05/01/25 16:00 05/01/25 16:00 Temperature 99.3 F Pulse Rate 136 H 128 H Respiratory Rate 21 H Blood Pressure 132/74 Pulse Oximetry 97 Oxygen Delivery Room Air 05/01/25 20:00 05/01/25 20:00 05/01/25 20:10 Temperature 98.5 F Pulse Rate 104 H 97 104 H Respiratory Rate 16 16 Blood Pressure 130/89 Pulse Oximetry 99 99 Oxygen Delivery Room Air 05/01/25 22:00 05/01/25 23:44 05/02/25 00:00 Temperature 97.9 F Pulse Rate 90 99 99 Respiratory Rate 14 14 Blood Pressure 112/57 L Pulse Oximetry 99 99 Oxygen Delivery Room Air 05/02/25 00:00 05/02/25 01:50 05/02/25 04:00 Temperature 97.7 F Pulse Rate 93 95 99 Respiratory Rate 14 Blood Pressure 134/70 Pulse Oximetry 97 Oxygen Delivery 05/02/25 04:00 05/02/25 04:00 05/02/25 06:00 Temperature Pulse Rate 99 92 92 Respiratory Rate 14 Blood Pressure Pulse Oximetry 97 Oxygen Delivery Room Air 05/02/25 07:58 Temperature 98.3 F Pulse Rate 112 H Respiratory Rate 20 Blood Pressure 134/78 Pulse Oximetry 99 Oxygen Delivery Intake/Output Intake/Output: Intake & Output 04/29/25 04/30/25 05/01/25 05/02/25 23:59 23:59 23:59 23:59 Intake Total 3733 1550 Output Total 500 Balance 3233 1550 Meds/Results Medications: Active Medications Generic Name Dose Route Start Last Admin Trade Name Freq PRN Reason Stop Dose Admin Acetaminophen 650 mg 05/01/25 13:31 05/01/25 22:44 Acetaminophen 325 Mg Tablet PO 650 mg Q4H PRN Administration Mild Pain (1-3) or Fever Hydrocodone Bitart/Acetaminophen 1 tab 05/01/25 15:00 Hydrocodone/Acetaminophen (*Crx) 5-325 Mg Tablet PO Q4H PRN Moderate Pain (4-6) Dextrose 12.5 gm 05/01/25 19:23 Dextrose 50% 25 Gm/50 Ml Syringe IV PUSH PRN PRN Hypoglycemia Protocol Docusate Sodium 100 mg 05/01/25 17:00 05/01/25 16:35 Docusate Sodium 100 Mg Capsule PO Not Given BID [facility] Escitalopram Oxalate 20 mg 05/02/25 09:00 Escitalopram Oxalate 10 Mg Tablet PO DAILY FABIAN Glucagon 1 mg 05/01/25 19:23 Glucagon For Inj 1 Mg Vial IM PRN PRN Hypoglycemia Protocol Glucose 15 gm 05/01/25 19:23 Glucose Oral Gel 15 Gm Of Glucse In 37.5 Gm Tube PO PRN PRN Hypoglycemia Protocol Hydromorphone HCl 0.5 mg 05/01/25 13:31 Hydromorphone Hcl Inj (*Crx) 1 Mg/Ml Syr IV PUSH Q4H PRN Pain Rated 7-10 Ceftriaxone Sodium 1 gm/ 50 mls @ 100 mls/hr 05/02/25 09:00 Sodium Chloride IVPB Q24H FABIAN Lactated Ringer's 1,000 mls @ 100 mls/hr 05/01/25 19:25 05/02/25 07:26 Lr - Lactated Ringers Iv IV CONT 100 mls/hr .Q10H FABIAN Administration Dextrose 1,000 mls @ 100 mls/hr 05/01/25 19:23 Dextrose 5% 1,000 Ml IVPB PRN PRN Hypoglycemia Protocol Insulin Aspart 2 - 5 units 05/02/25 08:00 Insulin Aspart (*Bkc) 100 Units/Ml SUB-Q TIDWM [facility] Protocol Insulin Glargine 15 units 05/01/25 21:00 05/01/25 22:46 Insulin Glargine (*Bkc) 100 Units/Ml 0.15 units/kg (15 units) 15 units SUB-Q Administration [facility] Ketorolac Tromethamine 15 mg 05/01/25 22:45 05/02/25 07:27 Ketorolac 15 Mg/Ml Vial (*Bkc) IV PUSH 15 mg Q6HR FABIAN Administration Radiology Results: ITS Impressions Abdomen/Pelvis CT 05/01/25 12:39 IMPRESSION: 1. Mild right-sided hydronephrosis and hydroureter although there is no obstructing distal calcified ureteral calculus. Findings may relate to a recently passed calculus however the differential includes an obstructing noncalcified calculus or stricture. Follow-up is recommended to assess. Abdomen Ultrasound 05/01/25 13:24 IMPRESSION: 1: Gallstones. 2: Fatty infiltration of the liver. Labs Labs: Laboratory Results - last 24 hr 05/01/25 05/01/25 05/01/25 11:31 11:35 17:49 WBC 19.2 H RBC 5.10 Hgb 13.6 D Hct 40.2 MCV 78.8 L MCH 26.7 MCHC 33.8 RDW 14.8 H Plt Count 291 MPV 9.0 Immature Gran % (Auto) 0.5 Neut % (Auto) 88.2 H Lymph % (Auto) 6.4 L [place] % (Auto) 4.3 Eos % (Auto) 0.2 Baso % (Auto) 0.4 Lymph # (Auto) 1.23 [place] # (Auto) 0.8 H Eos # (Auto) 0.0 Baso # (Auto) 0.1 Abs Immat Gran (auto) 0.10 H Absolute Neuts (auto) 17.0 H Absolute Nucleated RBC 0.000 Nucleated RBC % 0.0 PT 15.1 H INR 1.2 APTT 36.2 Puncture Site ABG pH ABG pCO2 ABG pO2 ABG PO2/FiO2 Ratio ABG HCO3 ABG O2 Saturation ABG O2 Content ABG Base Excess A-a Gradient Oxyhemoglobin Carboxyhemoglobin Methemoglobin Reduced Hemoglobin Total Hemoglobin O2 Delivery Device O2 Liters/Min FiO2 Sodium 133 L Potassium 3.8 Chloride 101 Carbon Dioxide 19 L Anion Gap 13 H BUN 5 L Creatinine 0.46 L Estim Creat Clear Calc 160 Estimated GFR > 60 Glucose 286 H POC Capillary Glucose Hemoglobin A1c 8.1 H Lactic Acid 2.6 H 2.3 H Calcium 9.3 Total Bilirubin 3.0 H AST 73 H ALT 73 H Alkaline Phosphatase 139 H Total Protein 8.7 H Albumin 4.5 Beta-Hydroxybutyrate/Acetoacetate 0.95 H TSH 0.648 Urine Color Dark yellow Urine Appearance Turbid H Urine pH 6.0 Ur Specific [place] 1.029 Urine Protein 2+ H Urine Glucose (UA) 3+ H Urine Ketones 3+ H Ur Blood (Man) 1+ H Urine Nitrate Positive H Urine Bilirubin 1+ H Urine Urobilinogen 1.0 Leukocyte Esterase Rfl 2+ H Urine RBC 6-10 H Urine WBC >100 H Ur Squamous Epith Cells Occasional Urine Bacteria 4+ H Urine Casts 0-2 POC Urine HCG, Qual Negative 05/01/25 05/01/25 05/02/25 18:39 19:42 03:38 WBC 13.4 H RBC 4.42 Hgb 11.7 L Hct 36.3 L MCV 82.1 MCH 26.5 MCHC 32.2 RDW 15.2 H Plt Count 211 MPV 9.4 Immature Gran % (Auto) 0.6 H Neut % (Auto) 77.2 H Lymph % (Auto) 15.7 L [place] % (Auto) 5.2 Eos % (Auto) 0.9 Baso % (Auto) 0.4 Lymph # (Auto) 2.10 [place] # (Auto) 0.7 H Eos # (Auto) 0.1 Baso # (Auto) 0.1 Abs Immat Gran (auto) 0.08 H Absolute Neuts (auto) 10.3 H Absolute Nucleated RBC 0.000 Nucleated RBC % 0.0 PT INR APTT Puncture Site Left radial ABG pH 7.450 ABG pCO2 28.4 L ABG pO2 98.9 ABG PO2/FiO2 Ratio 4.71 ABG HCO3 19.3 L ABG O2 Saturation 97.8 ABG O2 Content 16.6 ABG Base Excess -3.5 A-a Gradient 16.8 Oxyhemoglobin 96.3 Carboxyhemoglobin 1.1 Methemoglobin 0.3 Reduced Hemoglobin 2.3 Total Hemoglobin 12.2 O2 Delivery Device Room air O2 Liters/Min 0.0 FiO2 21 Sodium 138 Potassium 3.5 Chloride 106 Carbon Dioxide 21 L Anion Gap 11 BUN 4 L Creatinine 0.42 L Estim Creat Clear Calc 178 Estimated GFR > 60 Glucose 205 H POC Capillary Glucose 294 H Hemoglobin A1c Lactic Acid Calcium 8.8 Total Bilirubin 1.6 H AST 50 H ALT 49 H Alkaline Phosphatase 90 Total Protein 6.9 Albumin 3.5 Beta-Hydroxybutyrate/Acetoacetate TSH Urine Color Urine Appearance Urine pH Ur Specific [place] Urine Protein Urine Glucose (UA) Urine Ketones Ur Blood (Man) Urine Nitrate Urine Bilirubin Urine Urobilinogen Leukocyte Esterase Rfl Urine RBC Urine WBC Ur Squamous Epith Cells Urine Bacteria Urine Casts POC Urine HCG, Qual 05/02/25 07:26 WBC RBC Hgb Hct MCV MCH MCHC RDW Plt Count MPV Immature Gran % (Auto) Neut % (Auto) Lymph % (Auto) [place] % (Auto) Eos % (Auto) Baso % (Auto) Lymph # (Auto) [place] # (Auto) Eos # (Auto) Baso # (Auto) Abs Immat Gran (auto) Absolute Neuts (auto) Absolute Nucleated RBC Nucleated RBC % PT INR APTT Puncture Site ABG pH ABG pCO2 ABG pO2 ABG PO2/FiO2 Ratio ABG HCO3 ABG O2 Saturation ABG O2 Content ABG Base Excess A-a Gradient Oxyhemoglobin Carboxyhemoglobin Methemoglobin Reduced Hemoglobin Total Hemoglobin O2 Delivery Device O2 Liters/Min FiO2 Sodium Potassium Chloride Carbon Dioxide Anion Gap BUN Creatinine Estim Creat Clear Calc Estimated GFR Glucose POC Capillary Glucose 190 H Hemoglobin A1c Lactic Acid Calcium Total Bilirubin AST ALT Alkaline Phosphatase Total Protein Albumin Beta-Hydroxybutyrate/Acetoacetate TSH Urine Color Urine Appearance Urine pH Ur Specific [place] Urine Protein Urine Glucose (UA) Urine Ketones Ur Blood (Man) Urine Nitrate Urine Bilirubin Urine Urobilinogen Leukocyte Esterase Rfl Urine RBC Urine WBC Ur Squamous Epith Cells Urine Bacteria Urine Casts POC Urine HCG, Qual Quality VTE Prophylaxis VTE prophylaxis: mechanical ordered
--- NOTE | 2025-05-02 09:05 | WPDURCON ---
Assessment and Plan Assessment and plan (1) Pyelonephritis: Code(s): N12 - Tubulo-interstitial nephritis, not specified as acute or chronic Status: Acute Assessment and Plan: Patient has a pretty convincing picture of a recently passed right ureteral stone with right pyelonephritis Given the fact that she has improved so dramatically since admission (resolution of fever, improvement leukocytosis and absence of prior flank pain) I will not plan intervention with stent placement. Probably important that she stay until final identification of her infecting urinary tract organism so that appropriate oral antibiotics can be prescribed Urology Consult Note HPI Date Seen: 05/02/25 Requesting Physician: Evan Owens MD Primary Care Provider: OUTSOLE HANDLER PHYSICIAN Consult Narrative Narrative: Mariam Gamboa is a 34 year old female without prior significant history of urolithiasis. She was actually admitted yesterday after initially presenting to an urgent care with complaints of proceed fever and right flank pain. When seen in the ER here she was febrile with a significant leukocytosis and mild lactic acidosis. CT imaging demonstrated mild right hydronephrosis without an apparent stone. With supportive care overnight she has improved dramatically. Her flank pain is resolved, she is no longer febrile and her leukocytosis is improved. This is all as a picture of a recently passed ureteral stone with upper urinary tract infection. Review of Systems Review of Systems: All systems reviewed & are unremarkable except as noted in HPI and below [facility] Past Medical History Medical History (Updated 05/01/25 @ 14:59 by Anusha Prater, [employer]) History of smoking for 1-2 years and not yet delivered Obesity Suicide attempt Anxiety and depression Morbid obesity Gestational diabetes Family History Family History Sibling Franco disease Father Diabetes mellitus Mother Hypertension Father Hypertension Mother Breast cancer Social History Social History Years smoked: 2 Smoking status: Former smoker Tobacco type: cigarettes Second hand tobacco smoke exposure: No Smoking end date: 09/20/18 Substance use: never Do You Feel Safe in your Home?: No Lack of Transportation: No Lack of Food: Never True Current Housing: I Have Housing Concerned About Future Housing: No Difficulty Paying Gas/Electric Bills: No Difficulty Paying for Meds: No Currently Unemployed: No Education: Bachelor's Degree Difficulty w/ Childcare or Family Care: No Spiritual care concerns: No Meds Home Medications and Allergies Home Medications ?Medication ?Instructions ?Recorded ?Confirmed ?Type escitalopram oxalate 20 mg tablet 20 mg PO DAILY 08/17/23 05/01/25 History Allergies Allergy/AdvReac Type Severity Reaction Status Date / Time No Known Allergies Allergy Verified 05/01/25 10:52 Vital Signs Vital Signs - 24 hr 05/01/25 11:08 05/01/25 11:39 05/01/25 11:43 Temperature 97.3 F L 97.9 F Pulse Rate 138 H 114 H 118 H Respiratory Rate 16 18 16 Blood Pressure 160/100 H 150/91 H Pulse Oximetry 98 97 98 Oxygen Delivery 05/01/25 12:30 05/01/25 13:30 05/01/25 13:31 Temperature 103.0 F H Pulse Rate 126 H 138 H Respiratory Rate 18 20 Blood Pressure 145/81 H 160/98 H Pulse Oximetry 100 99 99 Oxygen Delivery 05/01/25 13:45 05/01/25 14:00 05/01/25 14:45 Temperature 99.9 F H Pulse Rate Respiratory Rate Blood Pressure Pulse Oximetry 96 100 Oxygen Delivery 05/01/25 15:56 05/01/25 16:00 05/01/25 16:00 Temperature 99.3 F Pulse Rate 136 H 128 H Respiratory Rate 21 H Blood Pressure 132/74 Pulse Oximetry 97 Oxygen Delivery Room Air 05/01/25 20:00 05/01/25 20:00 05/01/25 20:10 Temperature 98.5 F Pulse Rate 104 H 97 104 H Respiratory Rate 16 16 Blood Pressure 130/89 Pulse Oximetry 99 99 Oxygen Delivery Room Air 05/01/25 22:00 05/01/25 23:44 05/02/25 00:00 Temperature 97.9 F Pulse Rate 90 99 99 Respiratory Rate 14 14 Blood Pressure 112/57 L Pulse Oximetry 99 99 Oxygen Delivery Room Air 05/02/25 00:00 05/02/25 01:50 05/02/25 04:00 Temperature 97.7 F Pulse Rate 93 95 99 Respiratory Rate 14 Blood Pressure 134/70 Pulse Oximetry 97 Oxygen Delivery 05/02/25 04:00 05/02/25 04:00 05/02/25 06:00 Temperature Pulse Rate 99 92 92 Respiratory Rate 14 Blood Pressure Pulse Oximetry 97 Oxygen Delivery Room Air 05/02/25 07:58 05/02/25 08:00 Temperature 98.3 F Pulse Rate 112 H 112 H Respiratory Rate 20 20 Blood Pressure 134/78 Pulse Oximetry 99 99 Oxygen Delivery Room Air Exam Const: General: no acute distress Resp: Effort & Inspection: normal respiratory effort GI: Inspection: non-distended GI Palp: No abdominal tenderness and No Guarding due to palpation present (GI) Auscultation: normal bowel sounds Results Labs 05/02/25 03:38 05/02/25 03:38 Labs: Short CBC 05/01/25 05/02/25 Range/Units 11:31 03:38 WBC 19.2 H 13.4 H (4.5-10.0) K/mm3 Hgb 13.6 D 11.7 L (12.0-15.0) g/dL Hct 40.2 36.3 L (37.0-47.0) % Plt Count 291 211 (150-375) k/mm3 BMP 05/01/25 05/02/25 11:31 03:38 Sodium 133 L 138 Potassium 3.8 3.5 Chloride 101 106 Carbon Dioxide 19 L 21 L BUN 5 L 4 L Creatinine 0.46 L 0.42 L Glucose 286 H 205 H Calcium 9.3 8.8 Liver Function 05/01/25 05/02/25 Range/Units 11:31 03:38 Total Bilirubin 3.0 H 1.6 H (0.2-1.3) mg/dL AST 73 H 50 H (14-36) U/L ALT 73 H 49 H (6-35) U/L Alkaline Phosphatase 139 H 90 (38-126) U/L Albumin 4.5 3.5 (3.5-5.1) g/dL Urine 05/01/25 Range/Units 11:31 Urine Color Dark yellow (Yellow) Urine Appearance Turbid H (Clear) Urine pH 6.0 (5.0-9.0) Ur Specific [place] 1.029 (1.001-1.035) Urine Protein 2+ H (Negative) mg/dL Urine Glucose (UA) 3+ H (Negative) mg/dL
[2025-05-02] MEDS: DOCUSATE SODIUM 100 MG CAPSULE PO ×2 (09:09→17:20)
[2025-05-02] MEDS: cefTRIAXone 1 GM in SODIUM CHLORIDE 0.9% IV 50 ML 100 ML IVPB ×2 (09:09→18:43)
[2025-05-02] MEDS: ESCITALOPRAM OXALATE 10 MG TABLET 20 MG PO (09:10)
--- NOTE | 2025-05-02 10:45 | P.CONGI_ITS ---
Assessment and Plan Assessment and plan (1) SIRS (systemic inflammatory response syndrome): Code(s): R65.10 - Systemic inflammatory response syndrome (SIRS) of non-infectious origin without acute organ dysfunction Status: Acute Assessment and Plan: fever, abdominal pain, tachycardia, leukocytosis from pyelonephritis (2) Pyelonephritis: Code(s): N12 - Tubulo-interstitial nephritis, not specified as acute or chronic Status: Acute Assessment and Plan: on abx urologist on board (3) Elevated liver enzymes: Code(s): R74.8 - Abnormal levels of other serum enzymes Status: Acute Assessment and Plan: trending down, acutely elevated from pyelo and acidosis she has fatty liver and in the past marginally elevated probably from underlying fatty liver hepatitis panel negative she can follow-up in office will need healthy habits, lose weight (BMI 41) will follow only as needed (4) Flank pain: Code(s): R10.9 - Unspecified abdominal pain Status: Acute (5) Lactic acid acidosis: Code(s): E87.20 - Acidosis, unspecified Status: Acute GI Consult Note Consult date/time: 05/02/25 10:45 Reason for consult: elevated liver enzymes HPI: Mariam Gamboa is a 34 year old female history of anxiety and depression, gestational diabetes presents the hospital with right flank pain. She had UTI last week and progressively got worse with right flank pain so she went to urgent care, noted to have tachycardia and also fever 103 F, also had nausea vomiting, chills, polyuria and confirmed that she has pyelonephritis, admitted to hospital for IV antibiotics. Blood work leukocytosis 19.2, lactic acid 2.6, total bili of 3.0, AST of 73, ALT of 73, alkaline phos of 139, UA is turbid with positive for nitrates, 2+ leukocyte esterase, over 100 wbc's and 4+ bacteria. CT showing Mild right-sided hydronephrosis and hydroureter although there is no obstructing distal calcified ureteral calculus. Abdominal ultrasound showing gallstones and a fatty liver. she is doing much better now, no more fever. she had in the past transaminases 40-50, no alcohol use. Urology evaluated patient. Review of Systems 2 Constitutional: Constitutional: Reports chills, Reports fever(s) and Reports malaise Eyes: Eyes: Denies blurry vision ENT: Reports Normal hearing present Cardiovascular: Cardiovascular: Denies chest pain Respiratory: Respiratory: Denies cough Gastrointestinal: Gastrointestinal: Reports abdominal pain and Reports nausea Genitourinary: Genitourinary: Reports dysuria Musculoskeletal: Musculoskeletal: Denies neck pain Integumentary/Breasts: Skin/Breast: Denies rash Neurologic: Denies Abnormal speech present Psychiatric: Psychiatric: Denies behavioral changes [facility] Past Medical History Medical History (Updated 05/02/25 @ 10:50 by Juan Ellis MD) Flank pain Elevated liver enzymes SIRS (systemic inflammatory response syndrome) History of smoking for 1-2 years and not yet delivered Obesity Suicide attempt Anxiety and depression Morbid obesity Gestational diabetes Family History Family History Sibling Franco disease Father Diabetes mellitus Mother Hypertension Father Hypertension Mother Breast cancer Social History Social History Years smoked: 2 Smoking status: Former smoker Tobacco type: cigarettes Second hand tobacco smoke exposure: No Smoking end date: 09/20/18 Substance use: never Do You Feel Safe in your Home?: No Lack of Transportation: No Lack of Food: Never True Current Housing: I Have Housing Concerned About Future Housing: No Difficulty Paying Gas/Electric Bills: No Difficulty Paying for Meds: No Currently Unemployed: No Education: Bachelor's Degree Difficulty w/ Childcare or Family Care: No Spiritual care concerns: No Meds Home Medications and Allergies Home Medications ?Medication ?Instructions ?Recorded ?Confirmed ?Type escitalopram oxalate 20 mg tablet 20 mg PO DAILY 08/1705/01/25 History Allergies Allergy/AdvReac Type Severity Reaction Status Date / Time No Known Allergies Allergy Verified 05/01/25 10:52 Vital Signs Vital Signs - 24 hr 05/01/25 11:08 05/01/25 11:39 05/01/25 11:43 Temperature 97.3 F L 97.9 F Pulse Rate 138 H 114 H 118 H Respiratory Rate 16 18 16 Blood Pressure 160/100 H 150/91 H Pulse Oximetry 98 97 98 Oxygen Delivery 05/01/25 12:30 05/01/25 13:30 05/01/25 13:31 Temperature 103.0 F H Pulse Rate 126 H 138 H Respiratory Rate 18 20 Blood Pressure 145/81 H 160/98 H Pulse Oximetry 100 99 99 Oxygen Delivery 05/01/25 13:45 05/01/25 14:00 05/01/25 14:45 Temperature 99.9 F H Pulse Rate Respiratory Rate Blood Pressure Pulse Oximetry 96 100 Oxygen Delivery 05/01/25 15:56 05/01/25 16:00 05/01/25 16:00 Temperature 99.3 F Pulse Rate 136 H 128 H Respiratory Rate 21 H Blood Pressure 132/74 Pulse Oximetry 97 Oxygen Delivery Room Air 05/01/25 20:00 05/01/25 20:00 05/01/25 20:10 Temperature 98.5 F Pulse Rate 104 H 97 104 H Respiratory Rate 16 16 Blood Pressure 130/89 Pulse Oximetry 99 99 Oxygen Delivery Room Air 05/01/25 22:00 05/01/25 23:44 05/02/25 00:00 Temperature 97.9 F Pulse Rate 90 99 99 Respiratory Rate 14 14 Blood Pressure 112/57 L Pulse Oximetry 99 99 Oxygen Delivery Room Air 05/02/25 00:00 05/02/25 01:50 05/02/25 04:00 Temperature 97.7 F Pulse Rate 93 95 99 Respiratory Rate 14 Blood Pressure 134/70 Pulse Oximetry 97 Oxygen Delivery 05/02/25 04:00 05/02/25 04:00 05/02/25 06:00 Temperature Pulse Rate 99 92 92 Respiratory Rate 14 Blood Pressure Pulse Oximetry 97 Oxygen Delivery Room Air 05/02/25 07:58 05/02/25 08:00 Temperature 98.3 F Pulse Rate 112 H 112 H Respiratory Rate 20 20 Blood Pressure 134/78 Pulse Oximetry 99 99 Oxygen Delivery Room Air Results Labs 05/02/25 03:38 05/02/25 03:38 Labs: Short CBC 05/01/25 05/02/25 Range/Units 11:31 03:38 WBC 19.2 H 13.4 H (4.5-10.0) K/mm3 Hgb 13.6 D 11.7 L (12.0-15.0) g/dL Hct 40.2 36.3 L (37.0-47.0) % Plt Count 291 211 (150-375) k/mm3 BMP 05/01/25 05/02/25 11:31 03:38 Sodium 133 L 138 Potassium 3.8 3.5 Chloride 101 106 Carbon Dioxide 19 L 21 L BUN 5 L 4 L Creatinine 0.46 L 0.42 L Glucose 286 H 205 H Calcium 9.3 8.8 Liver Function 05/01/25 05/02/25 Range/Units 11:31 03:38 Total Bilirubin 3.0 H 1.6 H (0.2-1.3) mg/dL AST 73 H 50 H (14-36) U/L ALT 73 H 49 H (6-35) U/L Alkaline Phosphatase 139 H 90 (38-126) U/L Albumin 4.5 3.5 (3.5-5.1) g/dL Urine 05/01/25 Range/Units 11:31 Urine Color Dark yellow (Yellow) Urine Appearance Turbid H (Clear) Urine pH 6.0 (5.0-9.0) Ur Specific [place] 1.029 (1.001-1.035) Urine Protein 2+ H (Negative) mg/dL Urine Glucose (UA) 3+ H (Negative) mg/dL
--- NOTE | 2025-05-02 17:36 | P.PNIM_ITS ---
Progress Note: A&P Assessment and Plan (1) Sepsis: Code(s): A41.9 - Sepsis, unspecified organism Status: Acute Assessment and Plan: Patient presents with flank pain and found to have tachycardia, fever, leukocy tosis and lactic acidosis c/w sepsis CT showing mild right-sided hydronephrosis and hydroureter although there is no obstructing distal calcified ureteral calculus Sepsis related to pyelonephritis. She may have passed renal stone recently. She was started on Rocephin Fever resolved. WBC trending down. Still mildly tachycardic Continue Rocephin but advance to 2gm. Continue IV fluids. (2) Pyelonephritis: Code(s): N12 - Tubulo-interstitial nephritis, not specified as acute or chronic Status: Acute Assessment and Plan: As above (3) Diabetes mellitus: Code(s): E11.9 - Type 2 diabetes mellitus without complications Status: Acute Assessment and Plan: Patient with hyperglycemia on presentation (286) A1c 8.1%. Patient with hx of Gestational DM and now with new onset DM The patient's blood glucose was reviewed on 05/02 She was started on Lantus at night. Glucose better controlled. Continue AccuCheks covering with sliding scale. Hypoglycemia protocol available as needed. 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 Continue Lantus for now. Add metformin if her mild metabolic acidosis improves. Convert to oral medications before discharge. No Empagliflozin due to ongoing urinary infection. (4) Fatty liver: Code(s): K76.0 - Fatty (change of) liver, not elsewhere classified Status: Acute Assessment and Plan: AST has been elevated in the past but now with elevated TBili at 3. PT slightly up but PTT normal. HIV and hepatitis panel negative in 2022. Some of this related to sepsis picture. Repeat LFTs better. Check lipids, iron studies, etc. Follow. (5) Depression with anxiety: Code(s): F41.8 - Other specified anxiety disorders Status: Acute Assessment and Plan: Mood stable. Resume escitalopram Plan DVT Prophylaxis - SCD Code status - full Subjective Date/time seen: 05/02/25 17:36 Interval history: 34yo female with anxiety, depression, gestational diabetes who presents to the hospital with right flank pain. She feels better today. no n/v. Righ back/flank pain better. Pain did radiate to the groin initially but that has resolved. No abx prior to admission. Exam Narrative: Tm 103 98.4 152/89 109 18 99% ra Gen - NARD Chest - CTA bilaterally, nml RR CV - RRR S1/S2 Abd - Soft, NT/ND, Positive BS Back - mild right CVA tenderness Ext - No pedal edema Psych - Nml mood and affect Skin - skin tachy from recent diaphoresis Objective Data Vital Signs Vital Signs: Vital Signs - 24 hr 05/01/25 20:00 05/01/25 20:00 05/01/25 20:10 Temperature 98.5 F Pulse Rate 104 H 97 104 H Respiratory Rate 16 16 Blood Pressure 130/89 Pulse Oximetry 99 99 Oxygen Delivery Room Air 05/01/25 22:00 05/01/25 23:44 05/02/25 00:00 Temperature 97.9 F Pulse Rate 90 99 99 Respiratory Rate 14 14 Blood Pressure 112/57 L Pulse Oximetry 99 99 Oxygen Delivery Room Air 05/02/25 00:00 05/02/25 01:50 05/02/25 04:00 Temperature 97.7 F Pulse Rate 93 95 99 Respiratory Rate 14 Blood Pressure 134/70 Pulse Oximetry 97 Oxygen Delivery 05/02/25 04:00 05/02/25 04:00 05/02/25 06:00 Temperature Pulse Rate 99 92 92 Respiratory Rate 14 Blood Pressure Pulse Oximetry 97 Oxygen Delivery Room Air 05/02/25 07:58 05/02/25 08:00 05/02/25 08:00 Temperature 98.3 F Pulse Rate 112 H 112 H 114 H Respiratory Rate 20 20 Blood Pressure 134/78 Pulse Oximetry 99 99 Oxygen Delivery Room Air 05/02/25 10:00 05/02/25 11:36 05/02/25 12:00 Temperature 99.1 F Pulse Rate 102 H 106 H 104 H Respiratory Rate 20 20 Blood Pressure 137/79 Pulse Oximetry 97 99 Oxygen Delivery Room Air 05/02/25 12:00 05/02/25 14:00 05/02/25 16:00 Temperature Pulse Rate 108 H 104 H 104 H Respiratory Rate 20 Blood Pressure Pulse Oximetry 99 Oxygen Delivery Room Air 05/02/25 16:00 Temperature 98.4 F Pulse Rate 109 H Respiratory Rate 18 Blood Pressure 152/89 H Pulse Oximetry 99 Oxygen Delivery Intake/Output Intake/Output: Intake & Output 0804/30/25 05/01/25 05/02/25 23:59 23:59 23:59 23:59 Intake Total 3733 1910 Output Total 500 200 Balance 3233 1710 Meds/Results Medications: Active Medications Generic Name Dose Route Start Last Admin Trade Name Freq PRN Reason Stop Dose Admin Acetaminophen 650 mg 05/01/25 13:31 05/01/25 22:44 Acetaminophen 325 Mg Tablet PO 650 mg Q4H PRN Administration Mild Pain (1-3) or Fever Hydrocodone Bitart/Acetaminophen 1 tab 05/01/25 15:00 Hydrocodone/Acetaminophen (*Crx) 5-325 Mg Tablet PO Q4H PRN Moderate Pain (4-6) Dextrose 12.5 gm 05/01/25 19:23 Dextrose 50% 25 Gm/50 Ml Syringe IV PUSH PRN PRN Hypoglycemia Protocol Docusate Sodium 100 mg 05/01/25 17:00 05/02/25 17:20 Docusate Sodium 100 Mg Capsule PO 100 mg BID FABIAN Administration Escitalopram Oxalate 20 mg 05/02/25 09:00 05/02/25 09:10 Escitalopram Oxalate 10 Mg Tablet PO 20 mg DAILY FABIAN Administration Glucagon 1 mg 05/01/25 19:23 Glucagon For Inj 1 Mg Vial IM PRN PRN Hypoglycemia Protocol Glucose 15 gm 05/01/25 19:23 Glucose Oral Gel 15 Gm Of Glucse In 37.5 Gm Tube PO PRN PRN Hypoglycemia Protocol Hydromorphone HCl 0.5 mg 05/01/25 13:31 Hydromorphone Hcl Inj (*Crx) 1 Mg/Ml Syr IV PUSH Q4H PRN Pain Rated 7-10 Ceftriaxone Sodium 1 gm/ 50 mls @ 100 mls/hr 05/02/25 09:00 05/02/25 09:09 Sodium Chloride IVPB 100 mls/hr Q24H FABIAN Administration Lactated Ringer's 1,000 mls @ 100 mls/hr 05/01/25 19:25 05/02/25 07:26 Lr - Lactated Ringers Iv IV CONT 100 mls/hr .Q10H FABIAN Administration Dextrose 1,000 mls @ 100 mls/hr 05/01/25 19:23 Dextrose 5% 1,000 Ml IVPB PRN PRN Hypoglycemia Protocol Insulin Aspart 2 - 5 units 05/02/25 08:00 05/02/25 17:20 Insulin Aspart (*Bkc) 100 Units/Ml SUB-Q Not Given TIDWM [facility] Protocol Insulin Glargine 15 units 05/01/25 21:00 05/01/25 22:46 Insulin Glargine (*Bkc) 100 Units/Ml 0.15 units/kg (15 units) 15 units SUB-Q Administration [facility] Ketorolac Tromethamine 15 mg 05/01/25 22:45 05/02/25 17:20 Ketorolac 15 Mg/Ml Vial (*Bkc) IV PUSH Not Given Q6HR [facility] Radiology Results: ITS Impressions Abdomen/Pelvis CT 05/01/25 12:39 IMPRESSION: 1. Mild right-sided hydronephrosis and hydroureter although there is no obstructing distal calcified ureteral calculus. Findings may relate to a recently passed calculus however the differential includes an obstructing noncalcified calculus or stricture. Follow-up is recommended to assess. Abdomen Ultrasound 05/01/25 13:24 IMPRESSION: 1: Gallstones. 2: Fatty infiltration of the liver. Labs Labs: Laboratory Results - last 24 hr 05/01/25 05/01/25 05/01/25 17:49 18:39 19:42 WBC RBC Hgb Hct MCV MCH MCHC RDW Plt Count MPV Immature Gran % (Auto) Neut % (Auto) Lymph % (Auto) [place] % (Auto) Eos % (Auto) Baso % (Auto) Lymph # (Auto) [place] # (Auto) Eos # (Auto) Baso # (Auto) Abs Immat Gran (auto) Absolute Neuts (auto) Absolute Nucleated RBC Nucleated RBC % Puncture Site Left radial ABG pH 7.450 ABG pCO2 28.4 L ABG pO2 98.9 ABG PO2/FiO2 Ratio 4.71 ABG HCO3 19.3 L ABG O2 Saturation 97.8 ABG O2 Content 16.6 ABG Base Excess -3.5 A-a Gradient 16.8 Oxyhemoglobin 96.3 Carboxyhemoglobin 1.1 Methemoglobin 0.3 Reduced Hemoglobin 2.3 Total Hemoglobin 12.2 O2 Delivery Device Room air O2 Liters/Min 0.0 FiO2 21 Sodium Potassium Chloride Carbon Dioxide Anion Gap BUN Creatinine Estim Creat Clear Calc Estimated GFR Glucose POC Capillary Glucose 294 H Hemoglobin A1c 8.1 H Lactic Acid 2.3 H Calcium Total Bilirubin AST ALT Alkaline Phosphatase Total Protein Albumin Beta-Hydroxybutyrate/Acetoacetate 0.95 H TSH 0.648 05/02/25 05/02/25 05/02/25 03:38 07:26 08:08 WBC 13.4 H RBC 4.42 Hgb 11.7 L Hct 36.3 L MCV 82.1 MCH 26.5 MCHC 32.2 RDW 15.2 H Plt Count 211 MPV 9.4 Immature Gran % (Auto) 0.6 H Neut % (Auto) 77.2 H Lymph % (Auto) 15.7 L [place] % (Auto) 5.2 Eos % (Auto) 0.9 Baso % (Auto) 0.4 Lymph # (Auto) 2.10 [place] # (Auto) 0.7 H Eos # (Auto) 0.1 Baso # (Auto) 0.1 Abs Immat Gran (auto) 0.08 H Absolute Neuts (auto) 10.3 H Absolute Nucleated RBC 0.000 Nucleated RBC % 0.0 Puncture Site ABG pH ABG pCO2 ABG pO2 ABG PO2/FiO2 Ratio ABG HCO3 ABG O2 Saturation ABG O2 Content ABG Base Excess A-a Gradient Oxyhemoglobin Carboxyhemoglobin Methemoglobin Reduced Hemoglobin Total Hemoglobin O2 Delivery Device O2 Liters/Min FiO2 Sodium 138 Potassium 3.5 Chloride 106 Carbon Dioxide 21 L Anion Gap 11 BUN 4 L Creatinine 0.42 L Estim Creat Clear Calc 178 Estimated GFR > 60 Glucose 205 H POC Capillary Glucose 190 H Hemoglobin A1c Lactic Acid 1.2 Calcium 8.8 Total Bilirubin 1.6 H AST 50 H ALT 49 H Alkaline Phosphatase 90 Total Protein 6.9 Albumin 3.5 Beta-Hydroxybutyrate/Acetoacetate TSH 05/02/25 05/02/25 11:22 15:58 WBC RBC Hgb Hct MCV MCH MCHC RDW Plt Count MPV Immature Gran % (Auto) Neut % (Auto) Lymph % (Auto) [place] % (Auto) Eos % (Auto) Baso % (Auto) Lymph # (Auto) [place] # (Auto) Eos # (Auto) Baso # (Auto) Abs Immat Gran (auto) Absolute Neuts (auto) Absolute Nucleated RBC Nucleated RBC % Puncture Site ABG pH ABG pCO2 ABG pO2 ABG PO2/FiO2 Ratio ABG HCO3 ABG O2 Saturation ABG O2 Content ABG Base Excess A-a Gradient Oxyhemoglobin Carboxyhemoglobin Methemoglobin Reduced Hemoglobin Total Hemoglobin O2 Delivery Device O2 Liters/Min FiO2 Sodium Potassium Chloride Carbon Dioxide Anion Gap BUN Creatinine Estim Creat Clear Calc Estimated GFR Glucose POC Capillary Glucose 173 H 162 H Hemoglobin A1c Lactic Acid Calcium Total Bilirubin AST ALT Alkaline Phosphatase Total Protein Albumin Beta-Hydroxybutyrate/Acetoacetate TSH
[2025-05-02 20:43] LABS: Ammonia < 9 umol/L (9-30); Iron 18 ug/dL (37-170)
[2025-05-02 20:53] LABS: Percent Iron Saturation 7 % (20-50)
[2025-05-02] MEDS: ACETAMINOPHEN 325 MG TABLET 650 MG PO (20:54)
[2025-05-02] MEDS: INSULIN GLARGINE (*BKC) 100 UNITS/ML 15 UNITS SUB-Q (20:56)
[2025-05-02 21:15] LABS: Hepatitis B Surface Antigen Negative (Negative)
[2025-05-02 21:19] LABS: Ferritin 73.00 ng/mL (6.24-137)
[2025-05-02 21:32] LABS: Hepatitis B Surface Anti Res Negative
[2025-05-03] VITALS (11 sets, daily range): BP systolic 133–147; BP diastolic 78–98; PULSE 89–112; RESP 12–24; TEMP 36.1–37.6; O2SAT 97–100
[2025-05-03 04:08] LABS: Hematocrit 33.5 % (37.0-47.0); Hemoglobin 10.8 g/dL (12.0-15.0); Immature Granulocyte Percent A 0.4 % (0-0.5); Lymphocytes Absolute Auto 1.67 K/mm3 (0.9-3.2); Mean Corpuscular HGB Conc 32.2 g/dl (32-36); Mean Corpuscular Hemoglobin 26.7 pg (26-34); Mean Corpuscular Volume 82.9 fl (80-100); Nucleated Red Blood Cells Absolute Auto 0.000 K/mm3 (0.0-0.012); Nucleated Red Blood Cells Perc 0.0 % (0.0-0.2); Platelet Count Result 160 k/mm3 (150-375); Red Blood Count 4.04 M/mm3 (4.2-5.4); White Blood Count 9.2 K/mm3 (4.5-10.0)
[2025-05-03 04:31] LABS: Alanine Aminotransferase 33 U/L (6-35); Albumin Level 3.3 g/dL (3.5-5.1); Alkaline Phosphatase 105 U/L (38-126); Anion Gap 8 mmol/L (4-12); Aspartate Amino Transferase 39 U/L (14-36); Bilirubin,Total 1.1 mg/dL (0.2-1.3); Blood Urea Nitrogen 3 mg/dL (7-17); Calcium 8.6 mg/dL (8.4-10.2); Carbon Dioxide 25 mmol/L (22-30); Chloride 105 mmol/L (98-107); Cholesterol 164 mg/dL (0-200); Estimated CRCL calculation 172 ml/min; Estimated Glomerular Filt Rate > 60; Glucose 166 mg/dL (65-110); HDL Direct 15 mg/dL; Potassium 3.6 mmol/L (3.4-5.0); Sodium 138 mmol/L (137-145); Total Protein 6.7 g/dL (6.3-8.2); Triglycerides 255 mg/dL (<150)
[2025-05-03] MEDS: LACTATED RINGERS 1,000 ML 100 ML IV CONT (04:52)
[2025-05-03] MEDS: cefTRIAXone 2 GM in SODIUM CHLORIDE 0.9% IV 100 ML 200 ML IVPB (08:27)
[2025-05-03] MEDS: ESCITALOPRAM OXALATE 10 MG TABLET 20 MG PO (08:28)
[2025-05-03] MEDS: DOCUSATE SODIUM 100 MG CAPSULE PO (08:29)
[2025-05-03] MEDS: FERROUS SULFATE 325 MG TABLET DR PO (08:29)
[2025-05-03] MEDS: metFORMIN HCL 250 MG TABLET PO ×2 (09:31→17:55)
--- NOTE | 2025-05-03 10:19 | WPDUROPN2 ---
Progress Note: A&P Assessment and Plan (1) Pyelonephritis: Code(s): N12 - Tubulo-interstitial nephritis, not specified as acute or chronic Status: Acute Assessment and Plan: Continue to do well. Awiat completion urine culture. I'd suggest 10-days appropriate abx. once culture complete. Probably no need for f/u with us. Subjective Subjective Date/Time Seen: 05/03/25 10:19 Interval history: No significant flank/abdominal pain Review of Systems Cardiovascular: Cardiovascular: Denies chest pain, Denies lightheadedness, Denies palpitations and Denies dyspnea Respiratory: Respiratory: Denies dyspnea Gastrointestinal: Gastrointestinal: Denies diarrhea, Denies nausea and Denies vomiting Genitourinary: Genitourinary: Denies hematuria and Denies dysuria Endocrine: Endocrine: Denies palpitations Exam Const: General: no acute distress Resp: Effort & Inspection: normal respiratory effort GI: Inspection: non-distended GI Palp: No abdominal tenderness and No Guarding due to palpation present (GI) Auscultation: normal bowel sounds Objective Data Vital Signs Vital Signs: Vital Signs - 24 hr 05/02/25 11:36 05/02/25 12:00 05/02/25 12:00 Temperature 99.1 F Pulse Rate 106 H 104 H 108 H Respiratory Rate 20 20 Blood Pressure 137/79 Pulse Oximetry 97 99 Oxygen Delivery Room Air 05/02/25 14:00 05/02/25 16:00 05/02/25 16:00 Temperature 98.4 F Pulse Rate 104 H 104 H 109 H Respiratory Rate 20 18 Blood Pressure 152/89 H Pulse Oximetry 99 99 Oxygen Delivery Room Air 05/02/25 20:00 05/02/25 20:00 05/02/25 20:35 Temperature 98.8 F Pulse Rate 121 H 120 H 121 H Respiratory Rate 16 16 Blood Pressure 150/85 H Pulse Oximetry 100 100 Oxygen Delivery Room Air 05/02/25 22:00 05/03/25 00:00 05/03/25 00:00 Temperature 98.1 F Pulse Rate 102 H 100 91 Respiratory Rate 14 Blood Pressure 135/78 Pulse Oximetry 99 Oxygen Delivery 05/03/25 00:07 05/03/25 01:14 05/03/25 04:00 Temperature Pulse Rate 100 89 97 Respiratory Rate 14 Blood Pressure Pulse Oximetry 99 Oxygen Delivery Room Air 05/03/25 04:00 05/03/25 04:00 05/03/25 05:16 Temperature 99.4 F Pulse Rate 95 95 99 Respiratory Rate 14 14 Blood Pressure 146/90 H Pulse Oximetry 100 100 Oxygen Delivery Room Air 05/03/25 07:55 05/03/25 08:00 Temperature 98.9 F Pulse Rate 110 H 109 H Respiratory Rate 20 12 Blood Pressure 147/93 H Pulse Oximetry 97 98 Oxygen Delivery Room Air Intake/Output Intake/Output: Intake & Output 04/30/25 05/01/25 05/02/25 05/03/25 23:59 23:59 23:59 23:59 Intake Total 3733 3250 2425 Output Total 443 120 6859 Balance 3233 2400 1125 Meds/Results Medications: Active Medications Generic Name Dose Route Start Last Admin Trade Name Freq PRN Reason Stop Dose Admin Acetaminophen 650 mg 05/01/25 13:31 05/02/25 20:54 Acetaminophen 325 Mg Tablet PO 650 mg Q4H PRN Administration Mild Pain (1-3) or Fever Hydrocodone Bitart/Acetaminophen 1 tab 05/01/25 15:00 Hydrocodone/Acetaminophen (*Crx) 5-325 Mg Tablet PO Q4H PRN Moderate Pain (4-6) Dextrose 12.5 gm 05/01/25 19:23 Dextrose 50% 25 Gm/50 Ml Syringe IV PUSH PRN PRN Hypoglycemia Protocol Docusate Sodium 100 mg 05/01/25 17:00 05/03/25 08:29 Docusate Sodium 100 Mg Capsule PO 100 mg BID FABIAN Administration Escitalopram Oxalate 20 mg 05/02/25 09:00 05/03/25 08:28 Escitalopram Oxalate 10 Mg Tablet PO 20 mg DAILY FABIAN Administration Ferrous Sulfate 325 mg 05/03/25 09:00 05/03/25 08:29 Ferrous Sulfate [address] PO 325 mg DAILY FABIAN Administration Glucagon 1 mg 05/01/25 19:23 Glucagon For Inj 1 Mg Vial IM PRN PRN Hypoglycemia Protocol Glucose 15 gm 05/01/25 19:23 Glucose Oral Gel 15 Gm Of Glucse In 37.5 Gm Tube PO PRN PRN Hypoglycemia Protocol Hydromorphone HCl 0.5 mg 05/01/25 13:31 Hydromorphone Hcl Inj (*Crx) 1 Mg/Ml Syr IV PUSH Q4H PRN Pain Rated 7-10 Dextrose 1,000 mls @ 100 mls/hr 05/01/25 19:23 Dextrose 5% 1,000 Ml IVPB PRN PRN Hypoglycemia Protocol Ceftriaxone Sodium 2 gm/ 100 mls @ 200 mls/hr 05/03/25 09:00 05/03/25 09:32 Sodium Chloride IVPB Infused Q24H FABIAN Infusion Insulin Aspart 2 - 5 units 05/02/25 08:00 05/03/25 08:34 Insulin Aspart (*Bkc) 100 Units/Ml SUB-Q Not Given TIDWM [facility] Protocol Insulin Glargine 15 units 05/01/25 21:00 05/02/25 20:56 Insulin Glargine (*Bkc) 100 Units/Ml 0.15 units/kg (15 units) 15 units SUB-Q Administration HS COUNTS INCLUDE 234 BEDS AT [facility] Metformin HCl 250 mg 05/03/25 08:00 05/03/25 09:31 Metformin Hcl 250 Mg Tablet PO 250 mg BIDWM FABIAN Administration Radiology Results: ITS Impressions Abdomen/Pelvis CT 05/01/25 12:39 IMPRESSION: 1. Mild right-sided hydronephrosis and hydroureter although there is no obstructing distal calcified ureteral calculus. Findings may relate to a recently passed calculus however the differential includes an obstructing noncalcified calculus or stricture. Follow-up is recommended to assess. Abdomen Ultrasound 05/01/25 13:24 IMPRESSION: 1: Gallstones. 2: Fatty infiltration of the liver. Labs Labs: Laboratory Results - last 24 hr 05/02/25 05/02/25 05/02/25 11:22 15:58 20:04 WBC RBC Hgb Hct MCV MCH MCHC RDW Plt Count MPV Immature Gran % (Auto) Neut % (Auto) Lymph % (Auto) [place] % (Auto) Eos % (Auto) Baso % (Auto) Lymph # (Auto) [place] # (Auto) Eos # (Auto) Baso # (Auto) Abs Immat Gran (auto) Absolute Neuts (auto) Absolute Nucleated RBC Nucleated RBC % Sodium Potassium Chloride Carbon Dioxide Anion Gap BUN Creatinine Estim Creat Clear Calc Estimated GFR Glucose POC Capillary Glucose 173 H 162 H 174 H Calcium Iron TIBC % Saturation Ferritin Total Bilirubin AST ALT Alkaline Phosphatase Ammonia Total Protein Albumin Triglycerides Cholesterol LDL Cholesterol Direct HDL Direct Hep Bs Antigen Hep Bs Antibody Hep B Core Total Ab Hepatitis C Ab Screen 08/05/03/25 05/03/25 20:22 03:32 07:37 WBC 9.2 RBC 4.04 L Hgb 10.8 L Hct 33.5 L MCV 82.9 MCH 26.7 MCHC 32.2 RDW 15.0 H Plt Count 160 MPV 10.4 Immature Gran % (Auto) 0.4 Neut % (Auto) 72.0 Lymph % (Auto) 18.1 L [place] % (Auto) 7.8 Eos % (Auto) 1.3 Baso % (Auto) 0.4 Lymph # (Auto) 1.67 [place] # (Auto) 0.7 H Eos # (Auto) 0.1 Baso # (Auto) 0.0 Abs Immat Gran (auto) 0.04 H Absolute Neuts (auto) 6.6 Absolute Nucleated RBC 0.000 Nucleated RBC % 0.0 Sodium 138 Potassium 3.6 Chloride 105 Carbon Dioxide 25 Anion Gap 8 BUN 3 L Creatinine 0.45 L Estim Creat Clear Calc 172 Estimated GFR > 60 Glucose 166 H POC Capillary Glucose 166 H Calcium 8.6 Iron 18 L TIBC 274 % Saturation 7 L Ferritin 73.00 Total Bilirubin 1.1 AST 39 H ALT 33 Alkaline Phosphatase 105 Ammonia < 9 L Total Protein 6.7 Albumin 3.3 L Triglycerides 255 H Cholesterol 164 LDL Cholesterol Direct 100 HDL Direct 15 Hep Bs Antigen Negative Hep Bs Antibody Negative Hep B Core Total Ab Cancelled Hepatitis C Ab Screen Negative
--- NOTE | 2025-05-03 14:58 | P.PNIM_ITS ---
Progress Note: A&P Assessment and Plan (1) Sepsis: Code(s): A41.9 - Sepsis, unspecified organism Status: Acute Assessment and Plan: Patient presents with flank pain and found to have tachycardia, fever, leukocy tosis and lactic acidosis c/w sepsis CT showing mild right-sided hydronephrosis and hydroureter although there is no obstructing distal calcified ureteral calculus Sepsis related to pyelonephritis. She may have passed renal stone recently. She was started on Rocephin BCx and UCx pending. Urology consulted and appreciate their input. Fever resolved. WBC normal now. Still mildly tachycardic mostly with activity Continue Rocephin 2gm daily. IV fluids stopped. (2) Pyelonephritis: Code(s): N12 - Tubulo-interstitial nephritis, not specified as acute or chronic Status: Acute Assessment and Plan: As above (3) Diabetes mellitus: Code(s): E11.9 - Type 2 diabetes mellitus without complications Status: Acute Assessment and Plan: Patient with hyperglycemia on presentation (286) A1c 8.1%. Patient with hx of Gestational DM and now with new onset DM The patient's blood glucose was reviewed on 05/03 She was started on Lantus at night. Glucose better controlled. Continue AccuCheks covering with sliding scale. Hypoglycemia protocol available as needed. 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 Continue Lantus for now. Add metformin and Januvia. No Empagliflozin due to ongoing urinary infection. (4) Fatty liver: Code(s): K76.0 - Fatty (change of) liver, not elsewhere classified Status: Acute Assessment and Plan: AST has been elevated in the past but now with elevated TBili at 3. PT slightly up but PTT normal. HIV and hepatitis panel negative in 2022. Some of this related to sepsis picture. Repeat LFTs better. Iron studies c/w iron deficiency anemia. Ammonia <9. TG 255, LDL 100 and HDL 15. Hep B/C negative. Other studies pending. Follow. (5) Depression with anxiety: Code(s): F41.8 - Other specified anxiety disorders Status: Acute Assessment and Plan: Mood stable. Continue escitalopram Plan DVT Prophylaxis - SCD Code status - full Subjective Date/time seen: 05/03/25 14:58 Interval history: 34yo female with anxiety, depression, gestational diabetes who presents to the hospital with right flank pain. Had a headache earlier but better now. Her back pain is better but it feels 'sore'. No CP or SOB. No abd pain. Exam Narrative: AF 98.7 146/98 104 20 99% ra Gen - NARD Chest - CTA bilaterally, nml RR CV - RRR S1/S2. Tele showing episodes of sinus tachycardia. Abd - Soft, NT/ND, Positive BS Ext - No pedal edema Psych - Nml mood and affect Skin - warm and dry Objective Data Vital Signs Vital Signs: Vital Signs - 24 hr 05/02/25 16:00 05/02/25 16:00 05/02/25 20:00 Temperature 98.4 F 98.8 F Pulse Rate 104 H 109 H 121 H Respiratory Rate 20 18 16 Blood Pressure 152/89 H 150/85 H Pulse Oximetry 99 99 100 Oxygen Delivery Room Air 05/02/25 20:00 05/02/25 20:35 05/02/25 22:00 Temperature Pulse Rate 120 H 121 H 102 H Respiratory Rate 16 Blood Pressure Pulse Oximetry 100 Oxygen Delivery Room Air 05/03/25 00:00 05/03/25 00:00 05/03/25 00:07 Temperature 98.1 F Pulse Rate 100 91 100 Respiratory Rate 14 14 Blood Pressure 135/78 Pulse Oximetry 99 99 Oxygen Delivery Room Air 05/03/25 01:14 05/03/25 04:00 05/03/25 04:00 Temperature 99.4 F Pulse Rate 89 97 95 Respiratory Rate 14 Blood Pressure 146/90 H Pulse Oximetry 100 Oxygen Delivery 05/03/25 04:00 05/03/25 05:16 05/03/25 07:55 Temperature Pulse Rate 95 99 110 H Respiratory Rate 14 20 Blood Pressure Pulse Oximetry 100 97 Oxygen Delivery Room Air Room Air 05/03/25 08:00 05/03/25 08:00 05/03/25 10:00 Temperature 98.9 F Pulse Rate 109 H 104 H 93 Respiratory Rate 12 Blood Pressure 147/93 H Pulse Oximetry 98 Oxygen Delivery 05/03/25 12:00 05/03/25 12:00 Temperature 98.7 F Pulse Rate 102 H 104 H Respiratory Rate 20 Blood Pressure 146/98 H Pulse Oximetry 99 Oxygen Delivery Intake/Output Intake/Output: Intake & Output 04/30/25 05/01/25 05/02/25 05/03/25 23:59 23:59 23:59 23:59 Intake Total 5128 1251 5376 Output Total 841 705 0143 Balance 3233 2400 1125 Meds/Results Medications: Active Medications Generic Name Dose Route Start Last Admin Trade Name Freq PRN Reason Stop Dose Admin Acetaminophen 650 mg 05/01/25 13:31 05/02/25 20:54 Acetaminophen 325 Mg Tablet PO 650 mg Q4H PRN Administration Mild Pain (1-3) or Fever Hydrocodone Bitart/Acetaminophen 1 tab 05/01/25 15:00 Hydrocodone/Acetaminophen (*Crx) 5-325 Mg Tablet PO Q4H PRN Moderate Pain (4-6) Dextrose 12.5 gm 05/01/25 19:23 Dextrose 50% 25 Gm/50 Ml Syringe IV PUSH PRN PRN Hypoglycemia Protocol Docusate Sodium 100 mg 05/01/25 17:00 05/03/25 08:29 Docusate Sodium 100 Mg Capsule PO 100 mg BID FABIAN Administration Escitalopram Oxalate 20 mg 05/02/25 09:00 05/03/25 08:28 Escitalopram Oxalate 10 Mg Tablet PO 20 mg DAILY FABIAN Administration Ferrous Sulfate 325 mg 05/03/25 09:00 05/03/25 08:29 Ferrous Sulfate [address] PO 325 mg DAILY FABIAN Administration Glucagon 1 mg 05/01/25 19:23 Glucagon For Inj 1 Mg Vial IM PRN PRN Hypoglycemia Protocol Glucose 15 gm 05/01/25 19:23 Glucose Oral Gel 15 Gm Of Glucse In 37.5 Gm Tube PO PRN PRN Hypoglycemia Protocol Hydromorphone HCl 0.5 mg 05/01/25 13:31 Hydromorphone Hcl Inj (*Crx) 1 Mg/Ml Syr IV PUSH Q4H PRN Pain Rated 7-10 Dextrose 1,000 mls @ 100 mls/hr 05/01/25 19:23 Dextrose 5% 1,000 Ml IVPB PRN PRN Hypoglycemia Protocol Ceftriaxone Sodium 2 gm/ 100 mls @ 200 mls/hr 05/03/25 09:00 05/03/25 09:32 Sodium Chloride IVPB Infused Q24H FABIAN Infusion Insulin Aspart 2 - 5 units 05/02/25 08:00 05/03/25 14:06 Insulin Aspart (*Bkc) 100 Units/Ml SUB-Q Not Given TIDWM [facility] Protocol Insulin Glargine 15 units 05/01/25 21:00 05/02/25 20:56 Insulin Glargine (*Bkc) 100 Units/Ml 0.15 units/kg (15 units) 15 units SUB-Q Administration HS FABIAN Metformin HCl 250 mg 05/03/25 08:00 05/03/25 09:31 Metformin Hcl 250 Mg Tablet PO 250 mg BIDWM FABIAN Administration Radiology Results: ITS Impressions Abdomen/Pelvis CT 05/01/25 12:39 IMPRESSION: 1. Mild right-sided hydronephrosis and hydroureter although there is no obstructing distal calcified ureteral calculus. Findings may relate to a recently passed calculus however the differential includes an obstructing noncalcified calculus or stricture. Follow-up is recommended to assess. Abdomen Ultrasound 05/01/25 13:24 IMPRESSION: 1: Gallstones. 2: Fatty infiltration of the liver. Labs Labs: Laboratory Results - last 24 hr 05/02/25 05/02/25 05/02/25 15:58 20:04 20:22 WBC RBC Hgb Hct MCV MCH MCHC RDW Plt Count MPV Immature Gran % (Auto) Neut % (Auto) Lymph % (Auto) Ponce % (Auto) Eos % (Auto) Baso % (Auto) Lymph # (Auto) Ponce # (Auto) Eos # (Auto) Baso # (Auto) Abs Immat Gran (auto) Absolute Neuts (auto) Absolute Nucleated RBC Nucleated RBC % Sodium Potassium Chloride Carbon Dioxide Anion Gap BUN Creatinine Estim Creat Clear Calc Estimated GFR Glucose POC Capillary Glucose 162 H 174 H Calcium Iron 18 L TIBC 274 % Saturation 7 L Ferritin 73.00 Total Bilirubin AST ALT Alkaline Phosphatase Ammonia < 9 L Total Protein Albumin Triglycerides Cholesterol LDL Cholesterol Direct HDL Direct Hep Bs Antigen Negative Hep Bs Antibody Negative Hep B Core Total Ab Cancelled Hepatitis C Ab Screen Negative 05/03/25 05/03/25 05/03/25 03:32 07:37 11:32 WBC 9.2 RBC 4.04 L Hgb 10.8 L Hct 33.5 L MCV 82.9 MCH 26.7 MCHC 32.2 RDW 15.0 H Plt Count 160 MPV 10.4 Immature Gran % (Auto) 0.4 Neut % (Auto) 72.0 Lymph % (Auto) 18.1 L Ponce % (Auto) 7.8 Eos % (Auto) 1.3 Baso % (Auto) 0.4 Lymph # (Auto) 1.67 Ponce # (Auto) 0.7 H Eos # (Auto) 0.1 Baso # (Auto) 0.0 Abs Immat Gran (auto) 0.04 H Absolute Neuts (auto) 6.6 Absolute Nucleated RBC 0.000 Nucleated RBC % 0.0 Sodium 138 Potassium 3.6 Chloride 105 Carbon Dioxide 25 Anion Gap 8 BUN 3 L Creatinine 0.45 L Estim Creat Clear Calc 172 Estimated GFR > 60 Glucose 166 H POC Capillary Glucose 166 H 133 H Calcium 8.6 Iron TIBC % Saturation Ferritin Total Bilirubin 1.1 AST 39 H ALT 33 Alkaline Phosphatase 105 Ammonia Total Protein 6.7 Albumin 3.3 L Triglycerides 255 H Cholesterol 164 LDL Cholesterol Direct 100 HDL Direct 15 Hep Bs Antigen Hep Bs Antibody Hep B Core Total Ab Hepatitis C Ab Screen
--- NOTE | 2025-05-03 17:14 | ADMGEN ---
This patient, Mariam Gamboa, was admitted to [facility] Surg Room 328-01. Patient/family oriented to hospital policies and general routines including ID bracelet, bed and alarms, visiting hours, pain management, procedures, bathroom and other care routines, personal items, smoking policy, room service/diet, and visiting hours. Information on how to activate the Rapid Response Team has been discussed. Patient/Family are encouraged to report perceived risks to care and to ask questions if they do not understand what they are told or what they should do.
[2025-05-03] MEDS: INSULIN GLARGINE (*BKC) 100 UNITS/ML 15 UNITS SUB-Q (20:37)
[2025-05-04] VITALS (7 sets, daily range): BP systolic 115–153; BP diastolic 65–84; PULSE 88–103; RESP 14–20; TEMP 36.1–37.1; O2SAT 98–100
[2025-05-04] MEDS: FERROUS SULFATE 325 MG TABLET DR PO (08:10)
[2025-05-04] MEDS: ESCITALOPRAM OXALATE 10 MG TABLET 20 MG PO (08:10)
[2025-05-04] MEDS: cefTRIAXone 2 GM in SODIUM CHLORIDE 0.9% IV 100 ML 200 ML IVPB (08:10)
--- NOTE | 2025-05-04 15:30 | PM.IMPN ---
Progress Note: A&P Assessment and Plan (1) Sepsis: Code(s): A41.9 - Sepsis, unspecified organism Status: Acute Assessment and Plan: Patient presents with flank pain and found to have tachycardia, fever, leukocytosis and lactic acidosis c/w sepsis CT showing mild right-sided hydronephrosis and hydroureter although there is no obstructing distal calcified ureteral calculus Sepsis related to pyelonephritis. She may have passed renal stone recently. She was started on Rocephin BCx NGTD UCx GNB. Urology consulted and appreciate their input. Fever resolved. WBC normal now. Still mildly tachycardic mostly with activity and overall better Continue Rocephin 2gm daily. IV fluids stopped. Stop tele. (2) Pyelonephritis: Code(s): N12 - Tubulo-interstitial nephritis, not specified as acute or chronic Status: Acute Assessment and Plan: As above (3) Diabetes mellitus: Code(s): E11.9 - Type 2 diabetes mellitus without complications Status: Acute Assessment and Plan: Patient with hyperglycemia on presentation (286) A1c 8.1%. Patient with hx of Gestational DM and now with new onset DM The patient's blood glucose was reviewed on 05/03 She was started on Lantus at night. Glucose better controlled. Continue AccuCheks covering with sliding scale. Hypoglycemia protocol available as needed. 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 Continue Lantus for now. Added metformin and Januvia. No Empagliflozin due to ongoing urinary infection. (4) Fatty liver: Code(s): K76.0 - Fatty (change of) liver, not elsewhere classified Status: Acute Assessment and Plan: AST has been elevated in the past but now with elevated TBili at 3. PT slightly up but PTT normal. HIV and hepatitis panel negative in 2022. Some of this related to sepsis picture. Repeat LFTs better. Iron studies c/w iron deficiency anemia. Ammonia <9. TG 255, LDL 100 and HDL 15. Hep B/C negative. Other studies pending. Iron started. Follow. (5) Depression with anxiety: Code(s): F41.8 - Other specified anxiety disorders Status: Acute Assessment and Plan: Mood stable. Continue escitalopram Plan DVT Prophylaxis - SCD Code status - full Subjective Date/time seen: 05/04/25 15:30 Interval history: 34yo female with anxiety, depression, gestational diabetes who presents to the hospital with right flank pain. No problems overnight. Slight back pain. No n/v. No diarrhea. Exam Narrative: AF 96.9 115/80 83 18 99% ra Gen - NARD Chest - CTA bilaterally, nml RR CV - RRR S1/S2. Tele showing episodes of sinus tachycardia mostly when she is active. Abd - Soft, NT/ND, Positive BS Ext - No pedal edema Psych - Nml mood and affect Skin - warm and dry Objective Data Vital Signs Vital Signs: Vital Signs - 24 hr 05/03/25 16:00 05/03/25 16:00 05/03/25 20:00 Temperature 99.7 F H 97.0 F L Pulse Rate 110 H 112 H 104 H Respiratory Rate 24 H 17 Blood Pressure 133/81 143/93 H Pulse Oximetry 99 100 Oxygen Delivery 05/03/25 20:00 05/04/25 00:00 05/04/25 03:22 Temperature 98.8 F Pulse Rate 97 103 H 97 Respiratory Rate 14 Blood Pressure 153/82 H Pulse Oximetry 100 Oxygen Delivery 05/04/25 04:00 05/04/25 04:00 05/04/25 08:00 Temperature 97.6 F 96.9 F L Pulse Rate 88 88 96 Respiratory Rate 15 16 Blood Pressure 115/65 131/84 Pulse Oximetry 98 99 Oxygen Delivery 05/04/25 08:00 05/04/25 08:00 05/04/25 12:00 Temperature 96.9 F L Pulse Rate 90 98 Respiratory Rate 18 Blood Pressure 115/80 Pulse Oximetry 99 Oxygen Delivery Room Air 05/04/25 12:00 Temperature Pulse Rate 93 Respiratory Rate Blood Pressure Pulse Oximetry Oxygen Delivery Intake/Output Intake/Output: Intake & Output 05/01/25 05/02/25 05/03/25 05/04/25 23:59 23:59 23:59 23:59 Intake Total 3733 3250 2485 450 Output Total 706 771 1416 Balance 3233 2400 1185 450 Meds/Results Medications: Active Medications Generic Name Dose Route Start Last Admin Trade Name Freq PRN Reason Stop Dose Admin Acetaminophen 650 mg 05/01/25 13:31 05/02/25 20:54 Acetaminophen 325 Mg Tablet PO 650 mg Q4H PRN Administration Mild Pain (1-3) or Fever Hydrocodone Bitart/Acetaminophen 1 tab 05/01/25 15:00 Hydrocodone/Acetaminophen (*Crx) 5-325 Mg Tablet PO Q4H PRN Moderate Pain (4-6) Dextrose 12.5 gm 05/01/25 19:23 Dextrose 50% 25 Gm/50 Ml Syringe IV PUSH PRN PRN Hypoglycemia Protocol Docusate Sodium 100 mg 05/01/25 17:00 05/04/25 08:18 Docusate Sodium 100 Mg Capsule PO Not Given BID FABIAN Escitalopram Oxalate 20 mg 05/02/25 09:00 05/04/25 08:10 Escitalopram Oxalate 10 Mg Tablet PO 20 mg DAILY FABIAN Administration Ferrous Sulfate 325 mg 05/03/25 09:00 05/04/25 08:10 Ferrous Sulfate [address] PO 325 mg DAILY FABIAN Administration Glucagon 1 mg 05/01/25 19:23 Glucagon For Inj 1 Mg Vial IM PRN PRN Hypoglycemia Protocol Glucose 15 gm 05/01/25 19:23 Glucose Oral Gel 15 Gm Of Glucse In 37.5 Gm Tube PO PRN PRN Hypoglycemia Protocol Hydromorphone HCl 0.5 mg 05/01/25 13:31 Hydromorphone Hcl Inj (*Crx) 1 Mg/Ml Syr IV PUSH Q4H PRN Pain Rated 7-10 Dextrose 1,000 mls @ 100 mls/hr 05/01/25 19:23 Dextrose 5% 1,000 Ml IVPB PRN PRN Hypoglycemia Protocol Ceftriaxone Sodium 2 gm/ 100 mls @ 200 mls/hr 05/03/25 09:00 05/04/25 08:10 Sodium Chloride IVPB 200 mls/hr Q24H FABIAN Administration Insulin Aspart 2 - 5 units 05/02/25 08:00 05/04/25 12:29 Insulin Aspart (*Bkc) 100 Units/Ml SUB-Q Not Given TIDWM [facility] Protocol Insulin Glargine 15 units 05/01/25 21:00 05/03/25 20:37 Insulin Glargine (*Bkc) 100 Units/Ml 0.15 units/kg (15 units) 15 units SUB-Q Administration HS [facility] Metformin HCl 500 mg 05/04/25 08:00 05/04/25 08:10 Metformin Hcl 500 Mg Tablet PO 500 mg BIDWM FABIAN Administration Sitagliptin Phosphate 50 mg 05/04/25 09:00 05/04/25 08:10 Sitagliptin Phosphate 50 Mg Tablet PO 50 mg QAM FABIAN Administration Radiology Results: ITS Impressions Abdomen/Pelvis CT 05/01/25 12:39 IMPRESSION: 1. Mild right-sided hydronephrosis and hydroureter although there is no obstructing distal calcified ureteral calculus. Findings may relate to a recently passed calculus however the differential includes an obstructing noncalcified calculus or stricture. Follow-up is recommended to assess. Abdomen Ultrasound 05/01/25 13:24 IMPRESSION: 1: Gallstones. 2: Fatty infiltration of the liver. Labs Labs: Laboratory Results - last 24 hr 05/03/25 05/03/25 05/03/25 16:09 17:25 20:25 POC Capillary Glucose 154 H 135 H 122 H 05/04/25 05/04/25 07:45 11:54 POC Capillary Glucose 132 H 111 H
[2025-05-04] MEDS: INSULIN GLARGINE (*BKC) 100 UNITS/ML 15 UNITS SUB-Q (21:36)
[2025-05-05 05:14] VITALS: BP 146/77; PULSE 80; RESP 12; TEMP 36.6; O2SAT 98
[2025-05-05] MEDS: cefTRIAXone 2 GM in SODIUM CHLORIDE 0.9% IV 100 ML 200 ML IVPB (08:07)
[2025-05-05] MEDS: ESCITALOPRAM OXALATE 10 MG TABLET 20 MG PO (08:08)
[2025-05-05] MEDS: FERROUS SULFATE 325 MG TABLET DR PO (08:08)
--- NOTE | 2025-05-05 13:26 | PM.DS ---
DS: Admitting Diagnosis Discharge Date 05/05/25 Admitting Diagnosis Right flank pain DS: Discharge Diagnosis Discharge Diagnosis (1) Sepsis: Code(s): A41.9 - Sepsis, unspecified organism Status: Acute (2) Pyelonephritis: Code(s): N12 - Tubulo-interstitial nephritis, not specified as acute or chronic Status: Acute (3) Diabetes mellitus: Code(s): E11.9 - Type 2 diabetes mellitus without complications Status: Acute (4) Fatty liver: Code(s): K76.0 - Fatty (change of) liver, not elsewhere classified Status: Acute (5) Depression with anxiety: Code(s): F41.8 - Other specified anxiety disorders Status: Acute DS: Summary Hospital Course Reason for hospitalization: 34yo female with anxiety, depression, gestational diabetes who presents to the hospital with right flank pain. Please see H&P for detail. Hospital Course: Patient presented with flank pain and found to have tachycardia, fever, leukocytosis and lactic acidosis c/w sepsis. CT showing mild right-sided hydronephrosis and hydroureter although there is no obstructing distal calcified ureteral calculus. Sepsis related to pyelonephritis. She may have passed renal stone recently. She was started on Rocephin. BCx NGTD. UCx grew banda-sensitive EColi. Urology consulted and appreciate their input. Fever resolved. WBC normal now. Still mildly tachycardic mostly with activity but overall better. Patient with hyperglycemia on presentation (286). A1c 8.1%. Patient with hx of Gestational DM and now with new onset DM. She was started on Lantus at night. Glucose was monitored AccuCheks covering with sliding scale. Hypoglycemia protocol was available as needed. natural resources extension educator consulted. Diabetic diet started. Added metformin and Januvia. No Empagliflozin due to ongoing urinary infection. Imaging showing enlarged liver with moderate hepatic steatosis. Abdominal US showing fatty infiltration of the liver and gallstones. LFTs were elevated in the past but now with elevated TBili at 3. PT slightly up but PTT normal. HIV and hepatitis panel negative in 2022. Some of this related to sepsis picture. Repeat LFTs better. Iron studies c/w iron deficiency anemia. Ammonia <9. TG 255, LDL 100 and HDL 15. Hep B/C negative. Other studies pending. Iron replacement started. Patient overall did well and was able to be discharged on 05/05/25. Discharge instructions discussed and all questions answered. Status at Discharge Cognitive/behavioral status at discharge: Stable Time Spent with Patient Time attestation: Total time spent providing and/or coordinating discharge services: 35 minutes Time spent: Greater than 30 minutes Exam Narrative: AF 97.9 146/77 80 12 98% ra Gen - NARD Chest - CTA bilaterally, nml RR CV - RRR S1/S2 Abd - Soft, NT/ND, Positive BS Ext - No pedal edema Psych - Nml mood and affect Skin - warm and dry DS: Data Data Completed and Pending Labs on day of discharge: Labs from last 24 hours 05/05/25 05/05/25 05/04/25 11:10 07:23 20:30 POC Capillary Glucose 101 127 H 134 H Mitochondria M2 Ab Actin IgG Antibody 05/04/25 05/02/25 16:33 20:22 POC Capillary Glucose 113 H Mitochondria M2 Ab <20.0 Actin IgG Antibody 3 Preliminary micro results at discharge 05/01/25 17:49 Blood Culture - Preliminary Blood 05/01/25 20:14 Blood Culture - Preliminary Blood Discharge Plan Discharge Attending physician on discharge: Alejandro Chavez Consulting providers: Zeb Werner; Dennis Kennedy Discharging Clinician: Alejandro Chavez Anticipated Discharge Date/Time: 05/05/25 13:34 Patient Disposition: Home Activity: as tolerated Diet: diabetic and low fat Discharge Instructions: Please complete your antibiotic course even if you are starting to feel well. Contact your doctor or call 911 and come to the Emergency Room if you have fevers or other worrisome symptoms. Avoid NSAIDs (ibuprofen, naproxen, Aleve). Tylenol is safe to take. Follow-up with your primary care provider in 1-2 weeks. Please call for appointment. Follow-up with GI on 3-4 weeks. Please call for an appointment. Thank you for using [facility] for your health care needs. Patient Instructions: Antibiotic Form Patient Language: Malay Stand Alone Forms: General Discharge Information Follow-up/Referrals: PHYSICIAN,RADIO NEWS ANCHOR [Primary Care Provider, Internal Medicine] - Call for Appointment Juna Ellis MD [Physician, Gastroenterology] - Call for Appointment Discharge Medications: New ferrous sulfate 325 mg (65 mg iron) Tablet,Delayed Release (Dr/Ec) 325 mg PO DAILY Qty: 30 0RF Januvia 50 mg Tablet 50 mg PO QAM Qty: 30 1RF amoxicillin-pot clavulanate 875-125 mg tablet 1 tablet PO Q12H Qty: 4 0RF metformin 500 mg tablet 500 mg PO BIDWMEAL Qty: 60 1RF Continued escitalopram oxalate 20 mg tablet 20 mg PO DAILY Date of admission: 05/01/25 13:31 Primary Care Provider: PHYSICIAN,RADIO NEWS ANCHOR Admitting Provider: Evan Owens Attending physician on admission: Evan Owens Condition: Stable Hospitalist MIPS Heart Failure (Exclusion) Patient has history of Heart Transplant or Left Ventricular Assistive Device?: No IF YES, STOP HERE Heart Failure (Qualifier) Patient has current or prior documentation of LVEF less than or equal to 40%, or mod/servere depressed LVSF?: No IF NO, STOP HERE
[2025-05-05 14:00] VITALS: BP 151/86; PULSE 102; RESP 18; TEMP 35.9; O2SAT 96
[2025-05-05 15:08] LABS: Deamidated Gliadin Abs, IgA 6 units (0-19); Deamidated Gliadin Abs, IgG 2 units (0-19); Immunoglobulin A, Qn 280 mg/dL (87-352)
[2025-05-05 18:08] LABS: IgG, Subclass 1 428 mg/dL (248-810); IgG, Subclass 2 256 mg/dL (130-555); IgG, Subclass 3 27 mg/dL (15-102); IgG, Subclass 4 32 mg/dL (2-96); Immunoglobulin G, Qn 823 mg/dL (586-1602)
[2025-05-06 04:07] LABS: Hep B Core Ab, Total Negative (Negative)
--- NOTE | 2025-05-06 09:17 | PC.NURSE ---
Ceruloplasmin WNL, as is IgG subclass. Hep B core Ab is negative. Dr. Scott escalera.
--- NOTE | 2025-05-08 16:12 | PCCDE ---
05/08/25: DM educator attempted to reach patient after DC. Message left including call back number.
--- NOTE | 2025-05-11 08:21 | PC.NURSE ---
Blood cx are negative. A1-AT is elevated at 248. MM is normal. Dr. Scott escalera.
== END 2025-05-05 14:55 | disposition home or self-care (01) ==
LOC: ANHED 12:33 → ANHIMU 16:10 → ANH3MEDSUR 05-05 13:37 → ANHIMU 05-06 07:28
PROVIDERS: Nurse Practitioner Gerontology; Admitting Provider General Practice; Emergency Provider Emergency Medicine; Visit Provider Internal Medicine
DX: N12 Tubulo-interstitial nephritis, not specified as acute or chronic (principal); A41.9 Sepsis, unspecified organism; R65.10 Systemic inflammatory response syndrome (SIRS) of non-infectious origin without acute organ dysfunction; K76.0 Fatty (change of) liver, not elsewhere classified; R73.9 Hyperglycemia, unspecified; E87.20 Acidosis, unspecified; F41.8 Other specified anxiety disorders; Z91.51 Personal history of suicidal behavior; Z83.3 Family history of diabetes mellitus; Z82.49 Family history of ischemic heart disease and other diseases of the circulatory system; Z80.3 Family history of malignant neoplasm of breast; Z87.891 Personal history of nicotine dependence; E66.01 Morbid (severe) obesity due to excess calories; Z68.41 Body mass index [BMI] 40.0-44.9, adult
CPT/HCPCS: 36415; 36600; 74176; 76705; 80053; 80061; 81001; 81025; 82010; 82103; 82104; 82140; 82375; 82390; 82728; 82784; 82787; 82805; 82948; 83036; 83050; 83540; 83550; 83605; 84443; 85018; 85025; 85610; 85730; 86015; 86231; 86258; 86381; 86704; 86706; 86803; 87040; 87086; 87340; 96361; 96365; 96366; 96375; 96376; 99285; A9270; G0378; J0696; J1815; J1885; J2405; J7030; J7120